=== PATIENT | female | born 1975 | race Caucasian/White ===

== ENCOUNTER 2018-09-16 15:49 | Outpatient (REF) | payer BC, SELFPAY ==
--- NOTE | 2018-09-16 15:10 | PAPFT_PTH ---
PATIENT: Stefani Yu LOC: [facility] U#:[id number] AGE/SX: 43/F ROOM: RE09/16/[address]: REECE Petit : 1975 BED: DIS: 09/16/2018 SPEC #: [id number] RECD: 09/16/18 18:00 STATUS: HANNAH REJob #: [id number] PAUL: 09/16/18 15:[address]: Karuna Shepherd DEPT: ON LICENSE OF [facility] Cytology RECD BY: Yvonne Horvath ENTERED: 09/16/18 18:00 SP TYPE: PAPFT OTHR DR: Caro Garcia Tissues: 1 - CX/ENDOCX FOR PAP SMEARS Procedures: PAP THIN PREP/[facility] Screening HPV DNA PROBE Comments: [id number]
== END 2018-09-16 16:09 ==
LOC: LBN 15:49
PROVIDERS: Visit Provider Nurse Practitioner Family
DX: Z12.4 Encounter for screening for malignant neoplasm of cervix (principal); Z11.51 Encounter for screening for human papillomavirus (HPV)
CPT/HCPCS: 88142; 87624

== ENCOUNTER 2018-10-04 00:45 | Outpatient (CLI) | payer BC, SELFPAY ==
--- NOTE | 2018-10-04 17:30 | DI.MAMMO_ITS ---
SYMPTOM/DIAGNOSIS: SCREENING, Z12.31 MAMMOGRAMS: Mammograms were interpreted according to the usual protocol including computer analysis with CAD system, tomosynthesis and C view imaging. Comparison is made with exams from 2015 and 2017. The breasts are composed of heterogeneously dense fibroglandular tissue, breast density, Category C. No suspicious masses or suspicious microcalcifications are seen. There has been no significant change. IMPRESSION: Category 1, negative mammogram. Yearly screening mammography is recommended. [facility] ASSESSMENT OF FINDINGS: Negative. Category 1. Patient will receive a letter notifying them of these results. Bi-RADS category C. The breasts are heterogeneously dense, which may obscure small masses.
== END 2018-10-04 01:05 ==
PROVIDERS: Visit Provider Nurse Practitioner Family
DX: Z12.31 Encounter for screening mammogram for malignant neoplasm of breast (principal)
CPT/HCPCS: 77063; 77067

== ENCOUNTER 2019-03-17 22:06 | Outpatient (REF) | payer BC, SELFPAY ==
[2019-03-21 14:49] LABS: Chlamydia Result Negative (Negative); GC Result Negative (Negative)
== END 2019-03-17 22:26 ==
LOC: LBN 22:06
PROVIDERS: Visit Provider Nurse Practitioner Family
DX: Z11.3 Encounter for screening for infections with a predominantly sexual mode of transmission (principal)
CPT/HCPCS: 87491; 87591

== ENCOUNTER 2020-12-06 02:18 | Outpatient (CLI) | payer BC, SELFPAY ==
--- NOTE | 2020-12-06 15:40 | DI.MAMMO_ITS ---
Exam(s) MAMMO SCREENING EXAM: MAMMO SCREENING CLINICAL HISTORY: screening TECHNIQUE: Mammograms were interpreted according to the usual protocol including computer analysis w Ensenda CAD system, tomosynthesis and C-view imaging. COMPARISON: FINDINGS: The breasts are heterogeneously dense. No dominant mass or clumped microcalcification is identified in either breast. The current examination is compared with previous examinations including October 19 and there has been no gross interval change in appearance in comparison with the prior studies. IMPRESSION: No specific evidence of malignancy at this time. Routine screening examinations are suggested at yea rly intervals in this age group according to the ACS ACR guidelines. BI-RADS Category 1 - Negative Breast Density - Category C - Heterogeneously dense
== END 2020-12-06 02:38 ==
PROVIDERS: PCP Nurse Practitioner Family; Visit Provider Nurse Practitioner Family
DX: Z12.31 Encounter for screening mammogram for malignant neoplasm of breast (principal); R92.8 Other abnormal and inconclusive findings on diagnostic imaging of breast
CPT/HCPCS: 77063; 77067

== ENCOUNTER 2021-12-04 09:48 | Outpatient (REF) | payer BC, SELFPAY ==
--- NOTE | 2021-12-04 08:30 | PAPFT_PTH ---
PATIENT: Stefani Yu LOC: [facility]#:[id number] AGE/SX: 46/F ROOM: RE12/04/[address]: Altagracia Jimenez NP : 1975 BED: DIS: 12/04/2021 SPEC #: [id number] RECD: 12/04/21 13:08 STATUS: HANNAH REQ #: [id number] PAUL: 12/04/21 08:[address]: Altagracia Jimenez NP DEPT: [facility] Cytology RECD BY: Yvonne Horvath ENTERED: 12/04/21 13:08 SP TYPE: PAPFT OTHR DR: Rhonda Bedolla Tissues: 1 - CX/ENDOCX FOR PAP SMEARS Procedures: PAP THIN PREP/UVM Screening HPV DNA PROBE Comments: [id number]
== END 2021-12-04 09:49 | disposition home or self-care (01) ==
LOC: LBN 09:48
PROVIDERS: PCP Nurse Practitioner Family; Visit Provider Nurse Practitioner Women's Health
DX: Z12.4 Encounter for screening for malignant neoplasm of cervix (principal); Z11.51 Encounter for screening for human papillomavirus (HPV)
CPT/HCPCS: 88142; 87624

== ENCOUNTER → 2022-01-08 02:11 | Outpatient (CLI) | payer BC, SELFPAY ==
--- NOTE | 2022-01-08 17:30 | DI.MAMMO_ITS ---
Exam(s) MAMMO SCREENING EXAM: MAMMO SCREENING CLINICAL HISTORY: screening TECHNIQUE: Bilateral full field digital CC and MLO mammographic images were obtained with 3D tomosyn thesis and utilizing computer aided detection (CAD). COMPARISON: Available for comparison. FINDINGS: Masses/Architectural Distortion: None seen. Microcalcifications: No suspicious pleomorphic-type are seen. Skin Thickening/Nipple Retraction: None. IMPRESSION: 1. No significant interval change with no specific features of malignancy noted. 2. Unless there is more urgent need, screening mammography is recommended, as per [place] guidelines. BI-RADS Category 1 - Negative Breast Density - Category C - Heterogeneously dense Breast density category C or D implies that the patient has dense breast tissue. Dense breast tissue is very common and is not abnormal but dense breast tissue can make it harder to find cancer on a ma mmogram. Also, dense breast tissue may increase their breast cancer risk. This information about the result of the mammogram report was provided to the patient to raise their awareness. Use this report when you speak with the patient about their risks for breast cancer, which includes their family hist ory. At that time, you may recommend for more screening tests (Ultrasound or MRI) as they might be us eful based on their risk. A negative radiographic report should not delay biopsy if a dominant or clinically suspicious mass is present. Up to ten percent of cancers are not identified on mammography. A negative report may reinforce clinical impression. Adenosis and dense breasts may obscure an underlying neoplasm. False positive reports average 6 to 10%. Patient will receive a letter notifying them of these results.
== END ==
PROVIDERS: PCP Nurse Practitioner Family; Visit Provider Nurse Practitioner Women's Health
DX: Z12.31 Encounter for screening mammogram for malignant neoplasm of breast (principal); R92.8 Other abnormal and inconclusive findings on diagnostic imaging of breast
CPT/HCPCS: 77063; 77067

== ENCOUNTER 2022-04-17 13:32 | Outpatient (REF) | payer BC, SELFPAY ==
[2022-04-17 14:14] LABS: HCT 45.5 % (36.0-46.0); HGB 14.7 g/dL (11.2-15.7); MCH 26.6 pg (27.0-33.0); MCHC 32.3 % (32.0-36.0); MCV 82 fL (80-95); Platelet Count 223 10^3/uL (130-400); RBC 5.53 10^6/uL (3.93-5.22); RDW 13.4 % (11.7-14.6); RDW-SD 39.8 fL; WBC 7.93 10^3/uL (4.4-10.8)
[2022-04-17 14:28] LABS: ALT 27 U/L (14-59); AST 15 U/L (15-37); Albumin 4.1 g/dL (3.4-5.0); Alkaline Phosphatase 71 U/L (46-116); Anion Gap 9.2 mmol/L (3-11); BUN 24 mg/dL (7-18); Bilirubin, Total 0.4 mg/dL (0.2-1.0); CO2 28.8 mmol/L (21.0-32.0); Calcium 9.4 mg/dL (8.5-10.1); Calculated LDL 138 mg/dL (<100); Chloride 105 mmol/L (98-107); Cholesterol 224 mg/dL (<200); Estimated GFR 69.49 (mL/min/1.73m2); Glucose 106 mg/dL (74-106); HDL Cholesterol 61 mg/dL (40-60); Potassium 5.1 mmol/L (3.5-5.1); Sodium 143 mmol/L (136-145); Total Protein 7.2 g/dL (6.4-8.2); Triglyceride 126 mg/dL (<150)
[2022-04-19 09:46] LABS: HIV-1/2 Ag & Ab Screen Negative (Negative)
[2022-04-21 09:41] LABS: Hepatitis C Ab w Rflx HCV PCR Negative (Negative)
== END 2022-04-17 13:33 | disposition home or self-care (01) ==
LOC: NCHCN 13:32
PROVIDERS: PCP Nurse Practitioner Family; Visit Provider Nurse Practitioner Family
DX: Z00.00 Encounter for general adult medical examination without abnormal findings (principal); Z13.0 Encounter for screening for diseases of the blood and blood-forming organs and certain disorders involving the immune mechanism; Z13.220 Encounter for screening for lipoid disorders; Z13.228 Encounter for screening for other metabolic disorders; Z11.4 Encounter for screening for human immunodeficiency virus [HIV]; Z11.59 Encounter for screening for other viral diseases
CPT/HCPCS: 80053; 80061; 85027; 86803; 87389

== ENCOUNTER 2022-06-27 10:07 | Day surgery (SDC) | payer BC, SELFPAY ==
--- NOTE | 2022-06-26 22:00 | PDOC.DSDIS_ITS ---
Date of service: 06/27/22 Time of Service: 11:44 Discharge Plan Disposition Patient Disposition: Home Condition: Good Discharge Details Reason For Visit: colon scope Attending Provider: Amy Juárez Primary Care Provider: Rhonda Bedolla Home Meds and New Rx's Prescriptions: Continued Mirena 20 mcg/24 hours (5 yrs) 52 mg intrauterine device 1 device IY ONCE multivitamin Tablet 1 tab PO DAILY fluticasone propionate 16 GM spray,suspension 50 mcg NS DAILY loratadine [Claritin] 10 MG tablet 10 mg PO PRN omeprazole 20 mg capsule,delayed release(DR/EC) 20 mg PO DAILY Discontinued polyethylene glycol 3350 17 gram/dose powder 238 g PO ONCE Qty: 238 0RF Rx Instructions: take per colonoscopy instructions bisacodyl [Dulcolax (bisacodyl)] 5 mg tablet,delayed release (DR/EC) 5 mg PO ONCE Qty: 4 0RF Rx Instructions: take per colonoscopy instructions Discharge Instructions Additional Instructions: DSU Colonoscopy Post- Op Instructions Instructions for Everyone who is given Anesthesia: For your safety, please do the following for the next twenty-four (24) hours: *Do Not operate a motor vehicle (car, truck, motorcycle, etc.) *Do Not drink alcoholic beverages or use any recreational drugs for the first 24 hours or while taking pain medications. The medications in your body may have a reaction that can be dangerous. *Do Not make any important decisions or sign any important papers. Findings: normal Follow up: repeat in 5 yrs time 1. No lifting over 20 pounds or strenuous activity for the first 24 hours after your procedure. After 24 hours there are no restrictions on your activity but you may feel fatigued for a few days. 2. After you arrive home you may have a light meal and return to your normal diet as you can tolerate it without feeling sick to your stomach. 3. You may have a bloated, gaseous feeling in your belly (abdomen) after a colonoscopy. Passing gas and belching will help. Walking or lying down on your left side with your knees flexed may relieve the discomfort. Call the office at [phone] (Office) or [phone] (Hospital) right away if you notice any of the following: a.Vomiting of blood or ?coffee ground stools?. b.Rectal bleeding 1Tbsp, blood clots or continuous bleeding. c.Severe belly (abdominal) pain. d.A hard distended belly (abdomen) and an inability to pass gas. 4. Please don?t expect to have a normal BM (bowel movement) for 2-3 days after your procedure. 5. If there are questions regarding the findings of your procedure, please contact your doctor 6. If you are unable to contact your doctor with a problem, contact the hospital at [phone]. 7. Continue all your regular medications unless directed otherwise. I understand the above instructions and have no questions. Signature of Patient or Adult Escort Name of Responsible Adult Escort Signature of Nurse Date/Time Activity:: see above Diet:: see above Discharge Orders Discharge Orders: Discharge Order (Routine); Ordered 06/27/22 Ordered By: Amy Juárez DS: Diagnosis Discharge Diagnosis (1) Family history of malignant neoplasm of colon in relative diagnosed when older than 50 years of age: Status: Acute Asessment and Plan: Post [place] Note/Eval The patient is seen and examined after their colonoscopy.? The patient has been able to pass gas.? They are not having abdominal pain.? They have been able to tolerate liquids and a snack.? They do not have any nausea or vomiting.? They are not having any chest pain or shortness of breath.??? They are not having any rectal bleeding..? Their vital signs have been stable-see nursing notes. We discussed findings during their colonoscopy, and any biopsies that were done/polyps that were removed. The patient will be sent a letter with any biopsy results, and when to repeat the colonoscopy.-see discharge instructions. Patient was given explicit instructions to follow-up regarding colonoscopy-refer to discharge instructions.? We reviewed resumption of medications. Patient verbalized understanding and discharged in stable and satisfactory condition- See nursing notes.
[2022-06-27 09:32] VITALS: BMI 26.4
--- NOTE | 2022-06-27 09:32 | ANES.PREOP_ITS ---
General Info Date of Service Date Performed: 06/27/22 Height: 5 ft 8.5 in Weight: 79.832 kg Body Mass Index (BMI): 26.4 Surgical Procedure: Operation Date: 06/27/22 10:50 Proposed Procedure Side Surgeon bird Juárez, DO Meds Allergies and Home Medications Allergies Allergy/AdvReac Type Severity Reaction Status Date / Time pollen extracts Allergy Intermediate sneezing, Verified 06/27/22 10:33 watery eyes Animal Dander Allergy Mild Watery, Uncoded 06/27/22 10:33 itchy eyes dust mites Allergy Mild Water, Uncoded 06/27/22 10:33 itchy eyes Home Medication Medication Instructions Recorded fluticasone propionate 50 50 mcg NS DAILY 08/16/12 mcg/actuation nasal spray,suspension loratadine 10 mg tablet (Claritin) 10 mg PO PRN 08/16/12 omeprazole 20 mg capsule,delayed 20 mg PO DAILY 09/16/18 release levonorgestrel 21 mcg/24 hours (8 1 device intrauterine ONCE 03/17/19 yrs) 52 mg intrauterine device (Mirena) multivitamin 1 tab PO DAILY 06/12/22 Current Visit Medications: Current Medications Generic Name Dose Route Start Last Admin Trade Name Freq PRN Reason Stop Dose Admin Hyoscyamine Sulfate 0.125 mg 06/27/22 10:49 Hyoscyamine 0.125 Mg Sl/Oral/Chew SL DIRECTED PRN Ringer's Solution 1,000 mls @ 80 mls/hr 06/27/22 06:00 IV 07/26/22 23:59 [facility] IV Miscellaneous Supplies 1 each 06/27/22 06:00 Iv Access IV 07/26/22 23:59 DIRECTED [facility] Ondansetron HCl 4 mg 06/27/22 10:49 Ondansetron 4 Mg/2 Ml Vial IVP Q4H PRN PRN Nausea / Vomiting Sodium Chloride 0 ml 06/27/22 06:00 Normal Saline Flush 10 Ml Syr IV 07/26/22 23:59 PRN PRN Sodium Chloride 0 ml 06/27/22 06:00 Normal Saline 10 Ml Vial IJ 07/26/22 23:59 DIRECTED PRN Sterile Water 0 ml 06/27/22 06:00 Water,Injection,Sterile 10 Ml Vial IJ 07/26/22 23:59 DIRECTED PRN PFSH Active Problems Active Problems: Problem Status Onset Code IUD surveillance 08/21/14 Z30.431 Asthma 02/03/14 J45.909 Irregular bowel habits R19.8 Medical History Medical History (Updated 06/25/22 @ 14:35 by Akbar Padgett) GERD (gastroesophageal reflux disease) Tobacco Smoking/Tobacco Use Status: Current-Occasional Tobacco Type: cigarettes Alcohol Alcohol Intake: current Alcohol intake frequency: a few times a month Substance Use Substance use: Rarely Substance use type: marijuana Vital Signs and Lab Results Vital Signs Most Recent Vital Signs in EMR: Temp Pulse Resp BP Pulse Ox 36.5 C 72 16 115/81 98 06/27/22 10:17 06/27/22 10:17 06/27/22 10:17 06/27/22 10:17 06/27/22 10:17 Lab Results Blood Type / Crossmatch: No Data to Display Complete Blood Count: No Data to Display Complete Metabolic Panel: No Data to Display Liver Function Panel: No Data to Display Coagulation Panel: No Data to Display Cardiac Panel: No Data to Display Arterial Blood Gas: No Data to Display Venous Blood Gas: No Data to Display Pancreas Panel: No Data to Display Thyroid Panel: No Data to Display Infectious Disease: No Data to Display Blood Cultures: No Data to Display Toxicology Panel: No Data to Display Panel: No Data to Display Anesthesia Assessment and Plan Anesthesia History Personal History: No History of Anesthesia Complications Family History: No Family History of Anesthesia Complications Exercise Tolerance Exercise Tolerance: Metabolic Equivalents>4 Pertinent Negatives Pertinent Negatives: No Symptoms of GERD and No Major Cardiovascular Symptoms or Complaints Cardiac & Pulmonary Exam Cardiac Exam: Normal S1/S2 Heart Sounds Pulmonary Exam: Clear Bilateral Breath Sounds Implantable Cardiac Device Does patient have a Pacemaker or an ICD?: No Airway Exam Known Difficult Airway: No Mallampati Class: 1 Mouth Opening: Normal (> 3cm) Thyromental Distance: Less than 3 cm Neck Range of Motion: Full ROM Neck Circumference: Normal Teeth Condition: Normal Dentition ASA Classification ASA Score: ASA 2 Emergency Case?: No NPO Status NPO Status: NPO Clears >2 hours, Solids >8 hours Status Status: Negative HCG Anesthesia Plan Resuscitation Status: Full Code Anesthesia Technique: General Anesthesia Airway Planned: Natural Airway Monitors Used: Standard Monitors
[2022-06-27 10:17] VITALS: BP 115/81; PULSE 72; RESP 16; TEMP 36.5; O2SAT 98
[2022-06-27] MEDS: Lactated Ringers 1,000 ML 80 ML IV (10:23)
--- NOTE | 2022-06-27 11:14 | W.PM.OP ---
Date of service: 06/27/22 Time of Service: 11:14 Operative Note Operative Note DATE OF PROCEDURE: 06/27/22 PRE-OP DIAGNOSIS: Family history of colorectal cancer-secondary family member POST-OP DIAGNOSIS: same SURGEON: Amy Juárez ANESTHESIA TYPE: General:No Airway Refer to Anesthesia Record ESTIMATED BLOOD LOSS: 0 PATHOLOGY: none sent COMPLICATIONS: None Patient was transported to: same day Patient's condition: stable Procedure Description: After informed consent was obtained the patient was taken to the procedure room and placed in a left decubitous position. Monitors were applied and a time out was done. The patients name, date of , procedure, allergies to medications and metal in their body was reviewed. The patient was then sedated. Once sedated and comfortable a rectal exam was done. External exam was normal. Internal exam revealed a normal sphincter tone and no palpable masses. The scope was then introduced and retrofelexed. The prep was BBPS 3 in all segments for total of 9. No internal hemorrhoids were identified. The scope was then advanced to the cecum without difficulty. The TI and appendiceal orifice were identified. The scope was then slowly retracted over 13 minutes back into the rectum. there are no polyps, AVMs, or diverticula visualized today. Mucosa is pink and healthy with a normal vascular pattern.. The scope was removed and the patient was woken up and taken back to Same day surgery in stable condition. The patient tolerated the procedure well and there were no immediate complications. Follow up: The patient should follow up in 5 years unless they develop changes in bowel habits or other new gastrointestinal complaints.
[2022-06-27 11:57] VITALS: BP 94/74; PULSE 79; RESP 16; TEMP 36; O2SAT 95
--- NOTE | 2022-06-27 12:11 | W.ANESPOSTOP ---
Postoperative Evaluation Date, Time and Location Date Performed: 06/27/22 Time Performed: 11:57 Patient Location: Day Surgery Unit Vital Signs Most Recent Imported Vital Signs: Most Recent Vital Signs Temp Pulse Resp BP Pulse Ox 36.0 C L 79 16 94/74 L 95 06/27/22 11:57 06/27/22 11:57 06/27/22 11:57 06/27/22 11:57 06/27/22 11:57 Pain Score Most Recent Pain Score: Most Recent Pain Score Pain Level 0 06/27/22 10:17 Assessment Mental Status: Awake (Alert & Oriented to Patient Baseline) Airway and Respiratory Function: Patent airway with normal (patient baseline) respiratory exam Cardiovascular Function: Hemodynamically Stable Hydration Status: Adequately Hydrated Nausea & Vomiting: No Nausea or Vomiting Pain: Pt. Denies Any Pain Peripheral Nerve Block: Patient did not receive a nerve block
[2022-06-27 12:18] VITALS: BP 101/69; PULSE 60; RESP 16; TEMP 36.5; O2SAT 100
== END 2022-06-27 12:30 | disposition home or self-care (01) ==
PROVIDERS: PCP Nurse Practitioner Family; Visit Provider Surgery
PROC: 0DJD8ZZ Inspection of Lower Intestinal Tract, Via Natural or Artificial Opening Endoscopic (ICD-10-PCS; CPT 45378; principal; 2022-06-27 10:45)
DX: Z12.11 Encounter for screening for malignant neoplasm of colon (principal); Z80.0 Family history of malignant neoplasm of digestive organs
CPT/HCPCS: 45378

== ENCOUNTER 2023-05-01 16:17 | Outpatient (REF) | payer BC, SELFPAY ==
[2023-05-01 14:33] LABS: HCT 42.9 % (36.0-46.0); HGB 14.1 g/dL (11.2-15.7); MCH 26.7 pg (27.0-33.0); MCHC 32.9 % (32.0-36.0); MCV 81 fL (80-95); MPV 11.9 fL (8.0-11.0); Platelet Count 225 10^3/uL (130-400); RBC 5.29 10^6/uL (3.93-5.22); RDW-SD 40.8 fL; WBC 8.09 10^3/uL (4.4-10.8)
[2023-05-01 15:07] LABS: ALT 20 U/L (14-59); AST 12 U/L (15-37); Albumin 3.7 g/dL (3.4-5.0); Alkaline Phosphatase 82 U/L (46-116); BUN 18 mg/dL (7-18); Bilirubin, Total 0.3 mg/dL (0.2-1.0); Calculated LDL 141 mg/dL (<100); Chloride 107 mmol/L (98-107); Cholesterol 216 mg/dL (<200); Estimated GFR 69.06 (mL/min/1.73m2); Glucose 97 mg/dL (74-106); HDL Cholesterol 59 mg/dL (40-60); Potassium 4.7 mmol/L (3.5-5.1); Sodium 144 mmol/L (136-145); Triglyceride 80 mg/dL (<150)
== END 2023-05-01 16:18 | disposition home or self-care (01) ==
LOC: NCHCN 16:17
PROVIDERS: PCP Nurse Practitioner Family; Visit Provider Nurse Practitioner Family
DX: Z00.00 Encounter for general adult medical examination without abnormal findings (principal); Z13.220 Encounter for screening for lipoid disorders; Z13.0 Encounter for screening for diseases of the blood and blood-forming organs and certain disorders involving the immune mechanism; Z13.228 Encounter for screening for other metabolic disorders
CPT/HCPCS: 80053; 80061; 85027

== ENCOUNTER → 2023-09-24 01:00 | Outpatient (CLI) | payer BC, SELFPAY ==
--- OUTSIDE RECORDS SUMMARY | 2023-09-24 01:02 | XMS_ITS | Encounter Summary ---
Author Organization [facility] Address [address] [place] [address] Care Team Providers Care Dining Room Host Name Role Phone Unavailable Primary Care Provider Unavailabl e Encounter Details Date Type Department Care Team (Late st Contact Info) Description 08/03/2007 Results Only [facility] conversion [address] [place] [address] Jordan Hawthorne MD [address] [facility] [address] [place] [address] Social History Tobacco Use Types Packs/Day Years Used Date Smoking Tobacco: Never Assessed Sex and Gender Information Value Date Recorded Sex Assigned at Not on file Gender Identity Not on file Sexual Orientation Not on file documented as of this encounter Plan of Treatment Not on file documented as of this encounter Procedures Procedure Name Priority Date/Time Associated Diagnosis Comments CYTOPATHOLOGY Routine 08/03/2007 0:00 EDT documented in this encounter Results * CYTOPATHOLOGY (08/03/2007 0:00 EDT) Pathology Report: CYTOPATHOLOGY REPORT Reports generated via electronic interface contain original data; however they are lacking the format of the original report. Caution should be taken when reading/interpreti ng unformatted reports. Name: ? STEFANI MIRANDA ? Accession #: ? [id number] : ? 1975 (Age: 32) ??F ?Collect Date: ? 08/03/2007 Location: ? [facility] ? Receive Date: ? 08/04/2007 Provider: ?JORDAN HAWTHORNE MD Copy to: ? Specimen/Source: ?ThinPrep Pap Test, Cervix/Endocervix, processed on [employer] ThinPrep Imaging System, with manual evaluation Last Menstrual Period: ? 07/28/07 Hormonal/Contracep tive Status: ? Control Pills Other: ? Additional clinical information: nl exam ? SPECIMEN ADEQUACY ? Satisfactory for Evaluation - transformation zone component present GENERAL CATEGORIZATION ? Negative for Intraepithelial Lesion or Malignancy ? Document reviewed and electronically signed by: ? Jess Campos, SCT(ASCP) ? Report Date: ??08/05/2007 14:46 End of Report JENI MENDEZ 08/03/2007 08/04/2007 Jordan Hawthorne MD PATHOLOGY ORDERABLES Performing Organization Address City/State/[facility] Co de Phone Number JENI MENDEZ [address] [place] [address] documented in this encounter Visit Diagnoses Not on filedocumented in this encounter
--- OUTSIDE RECORDS SUMMARY | 2023-09-24 01:02 | XMS_ITS | Encounter Summary ---
Author Organization [facility] Address [address] [place] [address] Care Team Providers Care Rehab/Pre Vocational Counselor Name Role Phone Caro Garcia MD Primary Care Provider [phone] Encounter Details Date Type Department Care Team (Late st Contact Info) Description 03/18/2019 Lab Requisition [facility] Pathology & Laboratory Medicine - [address] [address] Unknown, Provider, Social History Tobacco Use Types Packs/Day Years Used Date Smoking Tobacco: Never Assessed Sex and Gender Information Value Date Recorded Sex Assigned at Not on file Gender Identity Not on file Sexual Orientation Not on file documented as of this encounter Plan of Treatment Not on file documented as of this encounter Procedures Procedure Name Priority Date/Time Associated Diagnosis Comments CHLAMYDIA/N. GONORRHOEAE AMPLIFIED NUCLEIC ACID Routine 03/17/2019 16:00 EST documented in this encounter Results * CHLAMYDIA/N. GONORRHOEAE AMPLIFIED RNA (03/17/2019 16:00 EST) Neisseria gonorrhoeae Result Negative Negative 03/21/2019 14:45 EST [facility] Chlamydia trachomatis Result Negative Negative 03/21/2019 14:45 EST [facility] Swab ENTIRE ENDOCERVIX / Unknown 03/17/2019 16:00 EST 03/18/2019 22:51 EST Provider Unknown MICROBIOLOGY - GENER AL ORDERABLES [facility] [address] [place] [address] documented in this encounter Visit Diagnoses Not on filedocumented in this encounter Care Teams Rehab/Pre Vocational Counselor Relationship Specialty Start Date End Date Caro Garcia MD [address] [place] [address] PCP - General 02/04/11 documented as of this encounter
--- OUTSIDE RECORDS SUMMARY | 2023-09-24 01:02 | XMS_ITS | Encounter Summary ---
Author Organization [facility] Address [address] [place] [address] Care Team Providers Care Operations Program Manager Name Role Phone Caro Garcia MD Primary Care Provider [phone] Encounter Details Date Type Department Care Team (Late st Contact Info) Description 08/27/2015 Results Only [facility] [phone] Karuna Shepherd, [facility] [address] [place] [address] Social History Tobacco Use Types Packs/Day Years Used Date Smoking Tobacco: Never Assessed Sex and Gender Information Value Date Recorded Sex Assigned at Not on file Gender Identity Not on file Sexual Orientation Not on file documented as of this encounter Plan of Treatment Not on file documented as of this encounter Procedures Procedure Name Priority Date/Time Associated Diagnosis Comments PAP TEST- RESULT ONLY Routine 08/27/2015 0:00 EDT documented in this encounter Results * PAP TEST- RESULT ONLY (08/27/2015 0:00 EDT) Pathology Report: CYTOPATHOLOGY REPORT Reports generated via electronic interface contain original data; however they are lacking the format of the original report. Caution should be taken when reading/interpreti ng unformatted reports. Name: ? STEFANI MIRANDA ? Accession #: ? [id number] ? : ? 1975 (Age: 40) ??F ?Collect Date: ? 08/27/2015 ? Location: ? [facility] ? Receive Date: ? 08/28/2015 ? Provider: KARUNA SHEPHERD PT SITTER Copy to: CARO GARCIA MD ? Final Report SPECIMEN ADEQUACY ? Satisfactory for Evaluation - transformation zone component present GENERAL CATEGORIZATION ? Negative for Intraepithelial Lesion or Malignancy ?? Hormonal/Contracep tive status: Intrauterine device: mirena Specimen/Source: ??Pap Test, Cervix/Endocervix, ThinPrep Imaging System with manual evaluation Document reviewed and electronically signed by: ? HALEY Wilson(ASCP) ? Report ??Date: 09/07/2015 11:37 HPV with Pap Test ? Date Ordered: ? 09/07/2015 ? Status: ?? Signed Out ?Date Complete: ? 09/11/2015 ? By: ??System Interface ? Date Reported: ? 09/11/2015 ? Interpretation RESULT: Negative for HPV. No E6 or E7 mRNA is detected from HPV types 16,18,31,33,35, 39,45,51,52,56,58, 59,66, and 68 by occupational health and safety manager mediated amplification. Comments Document reviewed and electronically signed by: ? System Interface ? Report date: 09/11/2015 By the signature above, the attending physician certifies that he/she has personally conducted a gross and/or microscopic examination of the described specimens and rendered or confirmed the above diagnosis. End of Report [facility] 08/27/2015 08/28/2015 Karuna Shepherd PT SITTER PATHOLOGY ORDERABLES [facility] [address] [place] [address] documented in this encounter Visit Diagnoses Not on filedocumented in this encounter Care Teams Operations Program Manager Relationship Specialty Start Date End Date Caro Garcia MD [address] [place] [phone] PCP - General 02/04/11 documented as of this encounter
--- OUTSIDE RECORDS SUMMARY | 2023-09-24 01:02 | XMS_ITS | Encounter Summary ---
Author Organization [facility] Address [address] [place] [address] Care Team Providers Care Grain Oilseed Or Pasture Farm Worker Name Role Phone Unavailable Primary Care Provider Unavailabl e Encounter Details Date Type Department Care Team (Late st Contact Info) Description 08/10/2009 Results Only [facility] Laboratory Services - [facility] ([facility] [address] [place] [address] Karuna Shepherd, [facility] [address] [place] [address] [place] [address] Social History Tobacco Use Types [...] Priority Date/Time Associated Diagnosis Comments CYTOPATHOLOGY Routine 08/10/2009 0:00 EDT documented in this encounter Results * CYTOPATHOLOGY (08/10/2009 0:00 EDT) Pathology Report: CYTOPATHOLOGY REPORT ? Reports generated via electronic interface contain original data; ? however they are lacking the format of the original report. ? Caution should be taken when reading/interpreti ng unformatted reports. ? Name: ? STEFANI MIRANDA ? Accession #: ? [id number] ? : ? 1975 (Age: 34) ??F ?Collect Date: ? 08/10/2009 ? Location: ? [facility] ? Receive Date: ? 08/13/2009 ? Provider: ?KARUNA SUSHILA PRN OCCUPATIONAL THERAPIST ? Copy to: ? Specimen/Source: ?Pap Test, Cervix/Endocervix, ThinPrep Imaging System ? with manual evaluation ? Last Menstrual Period: ? 05/26/10 ? Previous Gynecologic Pathology: ? SISSY I: 1999 ? Treatment History: ? Cryotherapy: SISSY I 1999 ? Other: ? HPVA - HPV testing requested if ASC-US on the current ThinPrep Pap test. ? SPECIMEN ADEQUACY ? Satisfactory for Evaluation ? - transformation zone component present ? GENERAL CATEGORIZATION ? Negative for Intraepithelial Lesion or Malignancy ? Document reviewed and electronically signed by: ? Mirela Mcdonaldlogg, CT(ASCP) ? Report Date: ??08/16/2009 10:33 ? End of Report ? [facility] 08/10/2009 08/13/2009 Karuna Shepherd PRN OCCUPATIONAL THERAPIST PATHOLOGY ORDERABLES [facility] [address] [place] [address] documented in this encounter Visit Diagnoses Not on filedocumented in this encounter
--- OUTSIDE RECORDS SUMMARY | 2023-09-24 01:02 | XMS_ITS | Encounter Summary ---
Author Organization [facility] Address [address] [place] [address] Care Team Providers Care Chemical Compounder Name Role Phone Unavailable Primary Care Provider Unavailabl e Encounter Details Date Type Department Care Team (Late st Contact Info) Description 06/19/2003 Results Only [facility] [place] conversion [address] [place] [address] Jordan Hawthorne MD [address] [facility] [address] [place] [address] Social History Tobacco Use Types [...] Priority Date/Time Associated Diagnosis Comments CYTOPATHOLOGY Routine 06/19/2003 0:00 EDT documented in this encounter Results * CYTOPATHOLOGY (06/19/2003 0:00 EDT) Pathology Report: CYTOPATHOLOGY REPORT Reports generated via electronic interface contain original data; however they are lacking the format of the original report. Caution should be taken when reading/interpreti ng unformatted reports. Name: ? STEFANI MIRANDA ? Accession #: ? [id number] : ? 1975 (Age: 28) ??F ?Collect Date: ? 06/19/2003 Location: ? [facility] ? Receive Date: ? 06/21/2003 Provider: ?JORDAN HAWTHORNE MD Copy to: ? Specimen/Source: ?ThinPrep Pap Test, Cervix/Endocervix Last Menstrual Period: ? 06/01/03 Hormonal/Contracep tive Status: ? Control Pills Previous Gynecologic Pathology: ? Yes: ? SPECIMEN ADEQUACY ? Satisfactory for Evaluation - transformation zone component present GENERAL CATEGORIZATION ? Negative for Intraepithelial Lesion or Malignancy ? Document reviewed and electronically signed by: ? HALEY Bagley(ASCP) ? Report Date: ??06/22/2003 11:23 End of Report [facility] 06/19/2003 06/21/2003 Jordan Hawthorne MD PATHOLOGY ORDERABLES [facility] [address] [place] [address] documented in this encounter Visit Diagnoses Not on filedocumented in this encounter
--- OUTSIDE RECORDS SUMMARY | 2023-09-24 01:02 | XMS_ITS | Encounter Summary ---
Author Organization [facility] Address [address] [place] [address] Care Team Providers Care Car Sales Consultant Name Role Phone Caro Garcia MD Primary Care Provider [phone] Encounter Details Date Type Department Care Team (Late st Contact Info) Description 08/16/2012 Results Only [facility] Laboratory Services - [facility] ([place]) [address] [place], [place] [address] Karuna Shepherd, [facility] [address] [address] Social History Tobacco Use Types [...] Diagnosis Comments PAP TEST- RESULT ONLY Routine 08/16/2012 0:00 EDT documented in this encounter Results * PAP TEST- RESULT ONLY (08/16/2012 0:00 EDT) Pathology Report: CYTOPATHOLOGY REPORT Reports generated via electronic interface contain original data; however they are lacking the format of the original report. Caution should be taken when reading/interpreti ng unformatted reports. Name: ? STEFANI MIRANDA ? Accession #: ? [id number] ? : ? 1975 (Age: 37) ??F ?Collect Date: ? 08/16/2012 ? Location: ? [facility] ? Receive Date: ? 08/17/2012 ? Provider: KARUNA SHEPHERD FACILITY MANAGER Copy to: CARO GARCIA MD ? Final Report SPECIMEN ADEQUACY ? Satisfactory for Evaluation - transformation zone component present GENERAL CATEGORIZATION ? Negative for Intraepithelial Lesion or Malignancy ?? Last Menstrual Period: 06/16/2012 Hormonal/Contracep tive status: Oral contraceptives: Extended cycles Specimen/Source: ??Pap Test, Cervix/Endocervix, ThinPrep Imaging System with manual evaluation Document reviewed and electronically signed by: ? Gallo Neumann, CT(ASCP) ? Report ??Date: 08/21/2012 11:43 HPV with Pap Test ? Date Ordered: ? 08/21/2012 ? Status: ?? Signed Out ?Date Complete: ? 08/24/2012 ? By: ??System Interface ? Date Reported: ? 08/24/2012 ? Interpretation RESULT: Negative for HPV. No E6 or E7 mRNA is detected from HPV types 16,18,31,33,35, 39,45,51,52,56,58, 59,66, and 68 by forensic accountant mediated amplification. Comments Document reviewed and electronically signed by: ? System Interface ? Report date: 08/24/2012 By the signature above, the attending physician certifies that he/she has personally conducted a gross and/or microscopic examination of the described specimens and rendered or confirmed the above diagnosis. End of Report [facility] 08/16/2012 08/17/2012 Karuna Shepherd FACILITY MANAGER PATHOLOGY ORDERABLES [facility] [address] [place] [address] documented in this encounter Visit Diagnoses Not on filedocumented in this encounter Care Teams Car Sales Consultant Relationship Specialty Start Date End Date Caro Garcia MD [address] [place] [address] PCP - General 02/04/11 documented as of this encounter
--- OUTSIDE RECORDS SUMMARY | 2023-09-24 01:02 | XMS_ITS | Encounter Summary ---
Author Organization [facility] Address [address] [place] [address] Care Team Providers Care Lye Machine Operator Name Role Phone Unavailable Primary Care Provider Unavailabl e Encounter Details Date Type Department Care Team (Late st Contact Info) Description 06/14/2001 Results Only [facility] [place] conversion [address] [place] [address] Jordan Hawthorne MD [address] [facility] [address] [place] [address] Social History Tobacco Use Types [...] Priority Date/Time Associated Diagnosis Comments CYTOPATHOLOGY Routine 06/14/2001 0:00 EDT documented in this encounter Results * CYTOPATHOLOGY (06/14/2001 0:00 EDT) Pathology Report: CYTOPATHOLOGY REPORT Reports generated via electronic interface contain original data; however they are lacking the format of the original report. Caution should be taken when reading/interpreti ng unformatted reports. Name: ? STEFANI MIRANDA ? Accession #: ? [id number] : ? 1975 (Age: 26) ??F ?Collect Date: ? 06/14/2001 Location: ? [facility] ? Receive Date: ? 06/15/2001 Provider: ?JORDAN HAWTHORNE MD Copy to: ? Specimen/Source: ?ThinPrep Pap Test, Cervix/Endocervix Last Menstrual Period: ? 05/24/01 Previous Gynecologic Pathology: ? ASC-US: In the past Treatment History: ? Cryotherapy: ? SPECIMEN ADEQUACY ? Satisfactory for Evaluation - transformation zone component present GENERAL CATEGORIZATION ? Negative for Intraepithelial Lesion or Malignancy ? Document reviewed and electronically signed by: ? JERARDO Leavitt(ASCP) ? Report Date: ??06/18/2001 08:04 End of Report [facility] 06/14/2001 06/15/2001 Jordan Hawthorne MD PATHOLOGY ORDERABLES [facility] [address] [place] [address] documented in this encounter Visit Diagnoses Not on filedocumented in this encounter
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
--- OUTSIDE RECORDS SUMMARY | 2023-09-24 01:02 | XMS_ITS | Encounter Summary ---
Author Organization [facility] Address [address] [place] [address] Care Team Providers Care Enroller Name Role Phone Unavailable Primary Care Provider Unavailabl e Encounter Details Date Type Department Care Team (Late st Contact Info) Description 01/31/2011 Results Only [facility] [phone] Ho Sloan, DO [address] [place] [address] Social History Tobacco Use Types Packs/Day Years Used Date Smoking Tobacco: Never Assessed Sex and Gender Information Value Date Recorded Sex Assigned at Not on file Gender Identity Not on file Sexual Orientation Not on file documented as of this encounter Plan of Treatment Not on file documented as of this encounter Procedures Procedure Name Priority Date/Time Associated Diagnosis Comments SURGICAL PATHOLOGY Routine 01/31/2011 0:00 EST documented in this encounter Results * SURGICAL PATHOLOGY (01/31/2011 0:00 EST) Pathology Report: SURGICAL PATHOLOGY REPORT Reports generated via electronic interface contain original data; however they are lacking the format of the original report. Caution should be taken when reading/interpreti ng unformatted reports. Name: ? STEFANI MIRANDA ? Accession #: ? [id number] ? : ? 1975 (Age: 36) ??F ? Collect Date: ? 01/31/2011 ? Location: ? [facility] ? Receive Date: ? 01/31/2011 ? Provider: HO SLOAN DO Copy to: STEPHANIE ANDERS MD ? Final Pathologic Diagnosis: A. ?Duodenum, biopsies: 1. ?Duodenal mucosa with no specific pathologic features. ?? B. ?Stomach, antrum, biopsies: 1. ?Chronic active gastritis. ?? 2. ? Helicobacter pylori-like organisms identified on H& E stained slides. C. ?gastroesophageal junction, biopsies: 1. ?Squamocolumnar junctional mucosa with chronic and acute inflammation and reactive epithelial changes. 2. ? Negative for intestinal metaplasia. 3. ? Helicobacter pylori-like organisms identified on H&E stained slides. Document reviewed and electronically signed by: MEAGHAN STEINBERG MD Report ??Date: 02/03/2011 15:54 By the signature above, the attending physician certifies that he/she has personally conducted a gross and/or microscopic examination of the described specimens and rendered or confirmed the above diagnosis. Specimen(s) Received: A. ?Duodenum (#1) B. ? Gastric antrum (#2) C. ? GE junction (#3) Clinical History: ? Abd pain, bloating + heme+stool Gross Description: ? Received in formalin labelled MarxWooa and duodenum are two irregular, santillan-brown .................. . tissue fragments which measure 0.3 x 0.2 x 0.1 cm each. ??The specimen is entirely submitted in one cassette as (A). Received in formalin labelled Marcoux, Stefani and gastric antrum are two irregular, santillan-brown soft tissue fragments which measure 0.2 x 0.1 x 0.1 cm and 0.3 x 0.2 x 0.1 cm. ??The specimen is entirely submitted in one cassette as (B). Received in formalin labelled Marcoux, Stefani and GE junction are three santillan-brown irregular soft tissue fragments which range in size from 0.5 x 0.3 x 0.2 cm up to 0.8 x 0.3 x 0.2 cm. ??The specimen is entirely submitted in one cassette as (C). ??(Dr. Haynes)/[facility] End of Report JENI MEN[facility] 01/31/2011 01/31/2011 16: 49 EST Ho Sloan DO PATHOLOGY ORDERABLES [facility] [address] [place] [address] documented in this encounter Visit Diagnoses Not on filedocumented in this encounter
--- OUTSIDE RECORDS SUMMARY | 2023-09-24 01:02 | XMS_ITS | Encounter Summary ---
[place] [address] Care Team Providers Care Ciso Name Role Phone Rhonda Bedolla APRN Primary Care Provider [phone] Encounter Details Date Type Department Care Team (Latest Contact Info) Description 03/05/2023 Travel Social History Tobacco Use Types Packs/Day Years Used Date Smoking Tobacco: Former Smokeless Tobacco: Never Sex and Gender Information Value Date Recorded Sex Assigned at Not on file Gender Identity Not on file Sexual Orientation Not on file documented as of this encounter Plan of Treatment Upcoming Encounters Date Type Department Care Team (Late st Contact Info) Description 03/12/2026 8:00 AM EST Office Visit Dermatology at [place] [address] [facility] [place] [phone] Paulo Arizmendi MD [address] [facility] [address] documented as of this encounter Visit Diagnoses Not on filedocumented in this encounter Care Teams Ciso Relationship Specialty Start Date End Date Rhonda Bedolla APRN [address] [place] [address] PCP - General Family Medicine 01/30/20 documented as of this encounter
--- OUTSIDE RECORDS SUMMARY | 2023-09-24 01:02 | XMS_ITS | Encounter Summary ---
Author Organization [facility] Address [address] [place] [address] Care Team Providers Care Tailor Fitter Name Role Phone Unavailable Primary Care Provider Unavailabl e Encounter Details Date Type Department Care Team (Late st Contact Info) Description 11/19/1999 10:22 EDT Hospital Encounter [facility] - Other [address] [place] [address] Jordan Kauffman MD [address] [facility] [address] [place] [address] [place] [address] Unknown, Provider, Social History Tobacco Use Types Packs/Day Years Used Date Smoking Tobacco: Never Assessed Sex and Gender Information Value Date Recorded Sex Assigned at Not on file Gender Identity Not on file Sexual Orientation Not on file documented as of this encounter Plan of Treatment Not on file documented as of this encounter Visit Diagnoses Not on filedocumented in this encounter
--- OUTSIDE RECORDS SUMMARY | 2023-09-24 01:02 | XMS_ITS | Encounter Summary ---
Author Organization [facility] Address [address] [place] [address] Care Team Providers Care Rectification Printer Name Role Phone Caro Garcia MD Primary Care Provider [phone] Encounter Details Date Type Department Care Team (Late st Contact Info) Description 08/15/2011 Results Only [facility] Laboratory Services - [facility] [address] [place], [place] [phone] Karuna Shepherd, [facility] [address] [place] [place] [address] Social History Tobacco Use Types [...] Diagnosis Comments PAP TEST- RESULT ONLY Routine 08/15/2011 0:00 EDT documented in this encounter Results * PAP TEST- RESULT ONLY (08/15/2011 0:00 EDT) Pathology Report: CYTOPATHOLOGY REPORT Reports generated via electronic interface contain original data; however they are lacking the format of the original report. Caution should be taken when reading/interpreti ng unformatted reports. Name: ? STEFANI MIRANDA ? Accession #: ? [id number] : ? 1975 (Age: 36) ??F ?Collect Date: ? 08/15/2011 Location: ? [facility] ? Receive Date: ? 08/18/2011 Provider: ?KARUNA SHEPHERD ORTHOTICS PROSTHETICS ASSISTANT Copy to: ?CARO GARCIA MD ? Specimen/Source: ?Pap Test, Cervix/Endocervix, ThinPrep Imaging System with manual evaluation Last Menstrual Period: ? March Hormonal/Contracep tive Status: ? Oral contraceptives Treatment History: ? Cryotherapy: 1998 ? SPECIMEN ADEQUACY ? Satisfactory for Evaluation - transformation zone component present GENERAL CATEGORIZATION ? Negative for Intraepithelial Lesion or Malignancy ? Document reviewed and electronically signed by: ? HALEY Bautista(ASCP) ? Report Date: ??08/19/2011 11:38 End of Report JENI MENDEZ 08/15/2011 08/18/2011 Karuna Shepherd ORTHOTICS PROSTHETICS ASSISTANT PATHOLOGY ORDERABLES J[facility]I M[facility] [address] [place] [address] documented in this encounter Visit Diagnoses Not on filedocumented in this encounter Care Teams Rectification Printer Relationship Specialty Start Date End Date Caro Garcia MD [address] [place] [address] PCP - General 02/04/11 documented as of this encounter
--- OUTSIDE RECORDS SUMMARY | 2023-09-24 01:02 | XMS_ITS | Encounter Summary ---
Author Organization [facility] Address [address] [place] [address] Care Team Providers Care Physician Underwriter Name Role Phone Unavailable Primary Care Provider Unavailabl e Encounter Details Date Type Department Care Team (Late st Contact Info) Description 06/17/2002 Results Only [facility] conversion [address] [place] [address] Jordan Hawthorne MD [address] [facility] [address] [place] [address] Social History Tobacco Use Types [...] Priority Date/Time Associated Diagnosis Comments CYTOPATHOLOGY Routine 06/17/2002 0:00 EDT documented in this encounter Results * CYTOPATHOLOGY (06/17/2002 0:00 EDT) Pathology Report: CYTOPATHOLOGY REPORT Reports generated via electronic interface contain original data; however they are lacking the format of the original report. Caution should be taken when reading/interpreti ng unformatted reports. Name: ? STEFANI MIRANDA ? Accession #: ? [id number] : ? 1975 (Age: 27) ??F ?Collect Date: ? 06/17/2002 Location: ? [facility] ? Receive Date: ? 06/20/2002 Provider: ?JORDAN HAWTHORNE MD Copy to: ? Specimen/Source: ?ThinPrep Pap Test, Cervix/Endocervix Last Menstrual Period: ? 06/08/02 Hormonal/Contracep tive Status: ? Control Pills Previous Gynecologic Pathology: ? SISSY I: 1998 Treatment History: ? Cryotherapy: normal pap since ? SPECIMEN ADEQUACY ? Satisfactory for Evaluation - transformation zone component present GENERAL CATEGORIZATION ? Negative for Intraepithelial Lesion or Malignancy ? Document reviewed and electronically signed by: ? HALEY Bravo(ASCP) ? Report Date: ??06/22/2002 14:31 End of Report JENI MENDEZ 06/17/2002 06/20/2002 Jordan Hawthorne MD PATHOLOGY ORDERABLES [facility] [address] [place] [address] documented in this encounter Visit Diagnoses Not on filedocumented in this encounter
--- OUTSIDE RECORDS SUMMARY | 2023-09-24 01:02 | XMS_ITS | Encounter Summary ---
Author Organization [facility] Address [address] [place] [address] Care Team Providers Care Furniture Stainer Name Role Phone Unavailable Primary Care Provider Unavailabl e Encounter Details Date Type Department Care Team (Late st Contact Info) Description 05/20/1999 Results Only [facility] conversion [address] [place] [address] Jordan Hawthorne MD 29 [facility] [address] [place] [address] Social History Tobacco Use Types [...] Priority Date/Time Associated Diagnosis Comments CYTOPATHOLOGY Routine 05/20/1999 9:55 EST documented in this encounter Results * CYTOPATHOLOGY (05/20/1999 9:55 EST) Pathology Report: CYTOPATHOLOGY REPORT Reports generated via electronic interface contain original data; however they are lacking the format of the original report. Caution should be taken when reading/interpreti ng unformatted reports. Name: ? STEFANI MIRANDA ? Accession #: ? [id number] : ? 1975 (Age: 24) ??F ?Collect Date: ? 05/20/1999 Location: ?Receive Date: ? 05/20/1999 Provider: ?JORDAN HAWTHORNE MD Copy to: ?JORDAN HAWTHORNE MD ? Specimen/Source: ?Saddle Mechanic ThinPrep Last Menstrual Period: ? GYNECOLOGIC ??CYTOPATHOLOGY ??REPORT Name: STEFANI MIRANDA ? FA[facility] : 1975 ?? 24Y F ?Client ID: [id number] SS#: [id number] ? Clinician: JORDAN HAWTHORNE MD ?? Location: [facility] ??Copy to: ?? Specimen: ?Saddle Mechanic ThinPrep ? Source: Cervix/Endocervix ?Collected: 05/16/99 ? Received: 05/20/1999 ?LMP: 04/27/99 ? Hormone Therapy: No ? : No ? Radiation Therapy: No ?? Post : No ?Chemotherapy: No ?IUD: No ? Prev Abnormal Pap: Yes ?? Clinical Hx: Cryo for CHRIS . ?(Blank patel indicate information not provided on requisition) SPECIMEN ADEQUACY: ? Satisfactory For Evaluation ?? GENERAL CATEGORIZATION: ? EPITHELIAL CELL ABNORMALITY ?? DESCRIPTIVE DIAGNOSIS: ? Atypical Squamous Cells Of Undetermined Significance (ASCUS), ? Favor Reactive Process ? Parakeratosis - Surface Reaction ?? RECOMMENDATION: ? Recommend Repeat Pap Smear In Approximately 3-6 Months Or ? Further Follow-up, As Clinically Indicated ? Reviewed And Electronically Signed By: ? Ruiz North M.D. ? Report Date: ?? 05/28/1999 [facility] Archived Tests - Final Diagnosis Text Field: Clinical History : ;Cryo for CHRIS . ? Document reviewed and electronically signed by: ? Conversion ? Report Date: ??05/28/1999 00:00 End of Report [facility] 05/20/1999 9:55 EST 05/20/1999 9:56 EST Jordan Hawthorne MD PATHOLOGY ORDERABLES Performing Organization Address City/State/[facility] Co de Phone Number [address] [address] documented in this encounter Visit Diagnoses Not on filedocumented in this encounter
--- OUTSIDE RECORDS SUMMARY | 2023-09-24 01:02 | XMS_ITS | Encounter Summary ---
Author Organization [facility] [place] [address] Care Team Providers Care Provider Contracting Consultant Name Role Phone Graeme Rhonda COLEEN Primary Care Provider [phone] Reason for Visit * Reason Comments Skin Check Encounter Details Date Type Department Care Team (Late st Contact Info) Description 03/05/2023 8:00 AM EST Office Visit Dermatology at [address] [address] Paulo Arizmendi MD [address] [facility] [place] [address] Nevus of back; Family history of skin cancer Social History Tobacco Use Types Packs/Day Years Used Date Smoking Tobacco: Former Smokeless Tobacco: Never Sex and Gender Information Value Date Recorded Sex Assigned at Not on file Gender Identity Not on file Sexual Orientation Not on file documented as of this encounter Progress Notes * Paulo Arizmendi MD - 03/05/2023 8:00 AM EST Problem: 1. 3-year repeat skin checkup 2. History of numerous blistering sunburns 3. No personal or family history of skin cancer. Stefani follows up after last being seen in January 2020. She grew [place] in [place]. She hashad a lot of sun exposure. She follows up with the Cautions seeing SPF 50 sunscreen of clothing. Both of her parents have had Nonmelanoma skin cancers. Physical examination is a pleasant 48-year-old woman who has a benign examination of the face thighs and calves. Examination of the feet and toe webspaces is also benign. She has a number of solar lentigos over the upper shoulders and a moderate number of benign-appearing junctional melanocytic nevi on the torso, arms and legs. She has beautiful ornate tattoos present on her distal forearms and lower extremities. Assessment plan: Benign skin examination 1. Patient reassured about her benign skin examination 2. Encouraged continuing sun avoidance precautions 3. Return to clinic in another 3 years for repeat check. CC: Rhonda Bedolla APRN documented in this encounter Plan of Treatment Upcoming Encounters Date Type Department Care Team (Late st Contact Info) Description 03/12/2026 8:00 AM EST Office Visit Dermatology at [place] [address] [place] [id number] Paulo Arizmendi MD [address] [facility] [place] [address] documented as of this encounter Visit Diagnoses Diagnosis Nevus of back Benign neoplasm of skin of trunk, except scrotum Family history of skin cancer Family history of other specified malignant neoplasm documented in this encounter Care Teams Provider Contracting Consultant Relationship Specialty Start Date End Date Rhonda Bedolla APRN [address] [place] [address] PCP - General Family Medicine 01/30/20 documented as of this encounter
--- OUTSIDE RECORDS SUMMARY | 2023-09-24 01:02 | XMS_ITS | Encounter Summary ---
Author Organization [facility] Address [address] [place] [address] Care Team Providers Care De Ionizer Operator Name Role Phone Caro Garcia MD Primary Care Provider [phone] Encounter Details Date Type Department Care Team (Late st Contact Info) Description 04/18/2022 Lab Requisition [facility] Pathology & Laboratory Medicine - [facility] [address] [place] [address] Outr Resulting Lab, Provider Social History Tobacco Use Types Packs/Day Years Used Date Smoking Tobacco: Never Assessed Sex and Gender Information Value Date Recorded Sex Assigned at Not on file Gender Identity Not on file Sexual Orientation Not on file documented as of this encounter Plan of Treatment Not on file documented as of this encounter Procedures Procedure Name Priority Date/Time Associated Diagnosis Comments HEPATITIS C AB W REFLEX TO HCV RNA BY PCR Routine 04/17/2022 8:20 EST documented in this encounter Results * HEPATITIS C AB W REFLEX TO HCV RNA BY PCR (04/17/2022 8:20 EST) Hep C Antibody Negative Negative 04/21/2022 9:36 EST [facility] Blood VENOUS BLOOD / Unknown 04/17/2022 8:20 EST 04/18/2022 19:25 EST Provider Outr Resulting Lab CHEMISTRY & BLOOD GAS ORDERABLES [facility] [address] [place] [address] documented in this encounter Visit Diagnoses Not on filedocumented in this encounter Care Teams De Ionizer Operator Relationship Specialty Start Date End Date Caro Garcia MD [address] [place] [id number] PCP - General 02/04/11 documented as of this encounter
--- OUTSIDE RECORDS SUMMARY | 2023-09-24 01:02 | XMS_ITS | Encounter Summary ---
Author Organization [facility] Address [address] [place] [address] Care Team Providers Care Advertising Representative Name Role Phone Caro Garcia MD Primary Care Provider [phone] Encounter Details Date Type Department Care Team (Late st Contact Info) Description 12/05/2021 Lab Requisition [facility] Pathology & Laboratory Medicine - [facility] [address] [place] [address] Altagracia Jimenez, ELECTRIC SHIPYARD OPERATOR [address] [place] [address] Encounter for other general examination Social History Tobacco Use Types Packs/Day Years Used Date Smoking Tobacco: Never Assessed Sex and Gender Information Value Date Recorded Sex Assigned at Not on file Gender Identity Not on file Sexual Orientation Not on file documented as of this encounter Plan of Treatment Not on file documented as of this encounter Procedures Procedure Name Priority Date/Time Associated Diagnosis Comments PAP TEST Today 12/04/2021 8:30 EDT Encounter for other general examination HPV DNA DETECTION WITH GENOTYPING, PCR Today 12/04/2021 8:30 EDT Encounter for other general examination documented in this encounter Results * HUMAN PAPILLOMAVIRUS (HPV) DETECTION-HIGH RISK TYPES (12/04/2021 8:30 EDT) HPV other High Risk types, PCR Negative Negative 12/09/2021 15:25 EDT [facility] Comment:No E6 or E7 mRNA is detected from HPV types 16,18,31,33,35,39,45,51,52,56,58,59,66, and 68 by outdoor emergency care technician mediated amplification. Papanicolaou smear specimen (specimen) CERVIX UTERI STRUCTURE / Unknown 12/04/2021 8:30 EDT 12/06/2021 15:49 EDT Altagracia Jimenez CO[facility]EN MICROBIOLOGY - GE NERAL ORDERABLES [facility] [address] [place] [id number] * PAP TEST (12/04/2021 8:30 EDT) Specimens A. Cervix and/or Endocervix , ThinPrep Imaging System with Manual Evaluation 12/09/2021 15:25 [facility] Specimen Adequacy Satisfactory for Evaluation - transformation zone component absent 12/09/2021 15:25 [facility] General Categorization Negative for intraepithelial lesion or malignancy 12/09/2021 15:25 [facility] Attestation . 12/09/2021 15:25 [facility] at 1525 Clinical History See below 12/10/19 15:25 T [facility] HPV The result for the Human Papillomavirus (HPV) Detection-High Risk Types is Negative. No E6 or E7 mRNA is detected from HPV types 16,18,31,33,35,39 ,45,51,52,56,58,5 9,66, and 68 by outdoor emergency care technician mediated amplification.Francoise ting was performed on specimen [id number] and was resulted on 12/09/2021 1509 EDT by TODD, LAB INSTRUMENT RESULTS IN 12/09/2021 15:25 T [facility] Performing Lab [facility] 12/09/2021 15:25 T [facility] Scanned Images 12/09/2021 15:25 T [facility] Papanicolaou smear specimen (specimen) CERVIX UTERI STRUCTURE / Unknown 12/04/2021 8:30 EDT 12/05/2021 10:27 EDT Altagracia Jimenez ELECTRIC SHIPYARD OPERATOR PATHOLOGY ORDERAB LES [facility] [address] [place] [address] documented in this encounter Visit Diagnoses Diagnosis Encounter for other general examination documented in this encounter Care Teams Advertising Representative Relationship Specialty Start Date End Date Caro Garcia MD [address] [place] [address] PCP - General 02/04/11 documented as of this encounter
--- OUTSIDE RECORDS SUMMARY | 2023-09-24 01:02 | XMS_ITS | Encounter Summary ---
Author Organization [facility] Address [address] [place] [address] Care Team Providers Care Caddy/Caddie Supervisor Name Role Phone Unavailable Primary Care Provider Unavailabl e Encounter Details Date Type Department Care Team (Late st Contact Info) Description 06/24/2004 Results Only [facility] conversion [address] [place] [address] Jordan Hawthorne MD 29 [facility] [address] [place] [address] Social History Tobacco Use Types [...] Priority Date/Time Associated Diagnosis Comments CYTOPATHOLOGY Routine 06/24/2004 0:00 EDT documented in this encounter Results * CYTOPATHOLOGY (06/24/2004 0:00 EDT) Pathology Report: CYTOPATHOLOGY REPORT Reports generated via electronic interface contain original data; however they are lacking the format of the original report. Caution should be taken when reading/interpreti ng unformatted reports. Name: ? STEFANI MIRANDA ? Accession #: ? [id number] : ? 1975 (Age: 29) ??F ?Collect Date: ? 06/24/2004 Location: ? [facility] ? Receive Date: ? 06/26/2004 Provider: ?JORDAN HAWTHORNE MD Copy to: ? Specimen/Source: ?ThinPrep Pap Test, Cervix/Endocervix Last Menstrual Period: ? 06/13/04 Hormonal/Contracep tive Status: ? Control Pills ? SPECIMEN ADEQUACY ? Satisfactory for Evaluation - transformation zone component present GENERAL CATEGORIZATION ? Negative for Intraepithelial Lesion or Malignancy ? Document reviewed and electronically signed by: ? HALEY Armstrong(ASCP) ? Report Date: ??07/02/2004 09:49 End of Report [facility] 06/24/2004 06/26/2004 Jordan Hawthorne MD PATHOLOGY ORDERABLES [facility] M[facility] [address] [place] [address] documented in this encounter Visit Diagnoses Not on filedocumented in this encounter
--- OUTSIDE RECORDS SUMMARY | 2023-09-24 01:02 | XMS_ITS | Encounter Summary ---
Author Organization [facility] Address [address] [place] [address] Care Team Providers Care Tow Truck Driver Name Role Phone Unavailable Primary Care Provider Unavailabl e Encounter Details Date Type Department Care Team (Late st Contact Info) Description 08/08/2008 Orders Only [facility] Laboratory Services - [facility] ([facility] [address] [place], [place] [address] Karuna Shepherd, [facility] [address] [place] [address] [place] [address] Social History Tobacco Use Types [...] Priority Date/Time Associated Diagnosis Comments CYTOPATHOLOGY Routine 08/08/2008 0:00 EDT documented in this encounter Results * CYTOPATHOLOGY (08/08/2008 0:00 EDT) Pathology Report: CYTOPATHOLOGY REPORT ? Reports generated via electronic interface contain original data; ? however they are lacking the format of the original report. ? Caution should be taken when reading/interpreti ng unformatted reports. ? Name: ? STEFANI MIRANDA ? Accession #: ? [id number] ? : ? 1975 (Age: 33) ??F ?Collect Date: ? 08/08/2008 ? Location: ? [facility] ? Receive Date: ? 08/10/2008 ? Provider: ?KARUNA SUSHILA PAIRER INSPECTOR ? Copy to: ? Specimen/Source: ?Pap Test, Cervix/Endocervix, ThinPrep Imaging System ? with manual evaluation ? Last Menstrual Period: ? 5/22/09 ? Hormonal/Contracep tive Status: ? Oral contraceptives ? Other: ? HPVA - HPV testing requested if ASC-US on the current ThinPrep Pap test. ? SPECIMEN ADEQUACY ? Satisfactory for Evaluation ? - transformation zone component present ? GENERAL CATEGORIZATION ? Negative for Intraepithelial Lesion or Malignancy ? Document reviewed and electronically signed by: ? Candy V[place],CT(ASCP) ? Report Date: ??08/15/2008 14:17 ? End of Report ? JENI MENDEZ 08/08/2008 08/10/2008 Karuna Shepherd PAIRER INSPECTOR PATHOLOGY ORDERABLES [facility] [address] [place] [address] documented in this encounter Visit Diagnoses Not on filedocumented in this encounter
--- OUTSIDE RECORDS SUMMARY | 2023-09-24 01:02 | XMS_ITS | Encounter Summary ---
Author Organization [facility] Address [address] [place] [address] Care Team Providers Care Insurance Office Manager Name Role Phone Unavailable Primary Care Provider Unavailabl e Encounter Details Date Type Department Care Team (Late st Contact Info) Description 07/08/2005 Results Only [facility] conversion [address] [place] [address] Jordan Hawthorne MD 29 [facility] [address] [place] [address] Social History Tobacco Use Types [...] Priority Date/Time Associated Diagnosis Comments CYTOPATHOLOGY Routine 07/08/2005 0:00 EDT documented in this encounter Results * CYTOPATHOLOGY (07/08/2005 0:00 EDT) Pathology Report: CYTOPATHOLOGY REPORT Reports generated via electronic interface contain original data; however they are lacking the format of the original report. Caution should be taken when reading/interpreti ng unformatted reports. Name: ? STEFANI MIRANDA ? Accession #: ? [id number] : ? 1975 (Age: 30) ??F ?Collect Date: ? 07/08/2005 Location: ? [facility] ? Receive Date: ? 07/09/2005 Provider: ?JORDAN HAWTHORNE MD Copy to: ? Specimen/Source: ?ThinPrep Pap Test, Cervix/Endocervix, processed on 20/20 [employer] ThinPrep Imaging System, with manual evaluation Last Menstrual Period: ? 06/29/05 Hormonal/Contracep tive Status: ? Control Pills ? SPECIMEN ADEQUACY ? Satisfactory for Evaluation - transformation zone component present GENERAL CATEGORIZATION ? Negative for Intraepithelial Lesion or Malignancy ? Document reviewed and electronically signed by: ? JERARDO Leavitt(ASCP) ? Report Date: ??07/11/2005 07:51 End of Report JENI MENDEZ 07/08/2005 07/09/2005 Jordan Hawthorne MD PATHOLOGY ORDERABLES J[facility]I MENDE[facility] [address] [place] [address] documented in this encounter Visit Diagnoses Not on filedocumented in this encounter
--- OUTSIDE RECORDS SUMMARY | 2023-09-24 01:02 | XMS_ITS | Encounter Summary ---
Author Organization [facility] Address [address] [place] [address] Care Team Providers Care Solid Waste Analyst Name Role Phone Caro Garcia MD Primary Care Provider [phone] Encounter Details Date Type Department Care Team (Late st Contact Info) Description 08/05/2018 Historical Results Only [facility] Lab - Main [place] [address] [place] [id number] Marcelino De La Rosa NP [address] [place] [address] [place] [address] Social History Tobacco Use Types Packs/Day Years Used Date Smoking Tobacco: Never Assessed Sex and Gender Information Value Date Recorded Sex Assigned at Not on file Gender Identity Not on file Sexual Orientation Not on file documented as of this encounter Plan of Treatment Not on file documented as of this encounter Procedures Procedure Name Priority Date/Time Associated Diagnosis Comments HEMOGLOBIN A1C Routine 08/05/2018 14:37 EDT LIPID PROFILE (INCLUDES CHOLESTEROL, TRIGLYCERIDES, HDL, LDL) Routine 08/05/2018 14:37 EDT documented in this encounter Results * (ABNORMAL) LIPID PROFILE (INCLUDES CHOLESTEROL, TRIGLYCERIDES, HDL, LDL) (08/05/2018 14:37 EDT) Triglyceride 52 <150 mg/dL 08/05/2018 16:15 EDT [facility] Comment: Adult: Normal: ?<150 mg/dl ? Borderline High: 150-199 mg/dl ? High: ?200-499 mg/dl ? Very High: >zg=629 Cholesterol 184 <200 mg/dL 08/05/2018 16:15 EDT [facility] Comment: Acceptable: ??<200 Borderline: ??200-239 High: ?> or = 240 Chol/HDL Ratio 3.0 0 - 4.5 08/05/2018 16:15 EDT [facility] Comment: DESIRABLE RATIO IS LESS THAN 4.1 PATIENTS ARE CONSIDERED AT RISK: WOMEN RATIO >5 MEN RATIO >6 FASTING? - [facility] Yes 9 14:49 EDT [facility] HDL 60 40 - 60 mg/dL 08/05/2018 16:15 [facility] Comment: ?? Reference Range Low: ? < 40 ??mg/dL Normal: ??40-60 mg/dL High: ?>= 60 mg/dL LDL CHOLESTEROL - [facility] 114(H) 60 - 100 mg/dL 08/05/2018 16:15 EDT [facility] Non HDL Cholesterol 124 mg/dl 08/05/2018 16:15 EDT [facility] Comment: Desirable: ?Less than 130 Borderline High: ??130-159 High: ? 160-189 Very High: ?Greater than or equal to 190 08/05/2018 14:3 7 EDT 08/05/2018 14:48 EDT Narrative [facility] - 08/05/2018 16:15 EDT Does PT Have a Latex Allergy? NO Marcelino De La Rosa NP CHEMISTRY & BLOOD GA S ORDERABLES [facility] * HEMOGLOBIN A1C (08/05/2018 14:37 EDT) Hemoglobin A1c 5.5 4.0 - 6.0 % 08/05/2018 22:01 EDT [facility] Comment: > or =18 years: ??Increased risk for diabetes (prediabetes): 5.7-6.4% Diabetes: > or =6.5% Therapeutic goals for glycemic control (ADA) Adults: - Goal of therapy: <7.0% HbA1c - Action suggested: >8.0% HbA1c Pediatric patients: - Toddlers and preschoolers: <8.5% (but >7.5%) - School age (6-12 years): <8% - Adolescents and young adults (13-19 years): <7.5% Est Avg Glucose 111 mg/dL 9 22:01 EDT [facility] 08/05/2018 14:3 7 EDT 08/05/2018 14:49 EDT Narrative [facility] - 08/05/2018 22:01 EDT Does PT Have a Latex Allergy? NO Marcelino De La Rosa GRAVEL WEIGHER CHEMISTRY & BLOOD GA S ORDERABLES [facility] documented in this encounter Visit Diagnoses Not on filedocumented in this encounter Care Teams Solid Waste Analyst Relationship Specialty Start Date End Date Caro Garcia MD [address] [place] [address] PCP - General 02/04/11 documented as of this encounter
--- OUTSIDE RECORDS SUMMARY | 2023-09-24 01:02 | XMS_ITS | Clinical Summary ---
[place] [address] Care Team Providers Care Entry Analyst Name Role Phone Graeme Rhonda COLEEN Primary Care Provider [phone] Allergies No known active allergies Medications Medication Sig Dispensed Refills Start Date End Date Status omeprazole (PriLOSEC) 20 mg Capsule, Delayed Release(E.C.) TK 1 C PO QD 08/24/2019 Active Active Problems No known active problems Social History Tobacco Use Types Packs/Day Years Used Date Smoking Tobacco: Former Smokeless Tobacco: Never Sex and Gender Information Value Date Recorded Sex Assigned at Not on file Gender Identity Not on file Sexual Orientation Not on file Plan of Treatment Upcoming Encounters Date Type Department Care Team (Late st Contact Info) Description 03/12/2026 8:00 AM EST Office Visit Dermatology at [address] [place] [id number] Paulo Arizmendi MD [address] [facility] [place] [address] Health Maintenance Due Date Last Done Comments CT Colonography 1975 Colonoscopy 1975 Colorectal Cancer Screening 1975 FIT DNA 1975 FIT 1975 Sigmoidoscopy (10 year) with FIT yearly 1975 Sigmoidoscopy 1975 HIV screen 01/16/1992 Hepatitis C Screening 01/16/1992 Hepatitis B vaccine (0-59 yrs) (1) 1993 Tdap adult 1993 Tetanus vaccine 1993 HPV test 01/16/2004 PAP Smear 01/16/2004 Breast Cancer Share Decision Needed 2014 Breast Cancer screening 2014 Covid-19 Vaccine (2022-24 season) 2022 Influenza (Flu) vaccine (1 o f 1 - Influenza standard series) 11/01/2023 Care Teams Entry Analyst Relationship Specialty Start Date End Date Rhonda Bedolla APRN [address] [place] [address] PCP - General Family Medicine 01/30/20
--- OUTSIDE RECORDS SUMMARY | 2023-09-24 01:02 | XMS_ITS | Encounter Summary ---
Author Organization [facility] Address [address] [place] [address] Care Team Providers Care Special Tax Auditor Name Role Phone Caro Garcia MD Primary Care Provider [phone] Encounter Details Date Type Department Care Team (Late st Contact Info) Description 04/18/2022 Lab Requisition [facility] Pathology & Laboratory Medicine - [facility] [address] [place] [address] Outr Resulting Lab, Provider Social History Tobacco [...] Procedure Name Priority Date/Time Associated Diagnosis Comments HIV 1/2 ANTIGEN AND ANTIBODY, 4TH GENERATION Routine 04/17/2022 8:20 EST documented in this encounter Results * HIV 1/2 ANTIGEN AND ANTIBODY, 4TH GENERATION (04/17/2022 8:20 EST) HIV 1 and 2 Antibody/p24 Antigen, 4th Generation Negative Negative 04/19/2022 9:42 EST [facility] Comment:If acute HIV-1 infec tion is suspected in a high risk patient, submit plasma specimen for HIV-1 RNA quantitation test. Blood VENOUS BLOOD / Unknown 04/17/2022 8:20 EST 04/18/2022 19:25 EST Narrative [facility] - 04/19/2022 9:42 EST Fourth Generation assay performed on the Siemens WebTuneraur XPT. Provider Outr Resulting Lab IMMUNOLOGY A ND SEROLOGY ORDERABLES [facility] [address] [place] [address] documented in this encounter Visit Diagnoses Not on filedocumented in this encounter Care Teams Special Tax Auditor Relationship Specialty Start Date End Date Caro Garcia MD [address] [place] [id number] PCP - General 02/04/11 documented as of this encounter
--- OUTSIDE RECORDS SUMMARY | 2023-09-24 01:02 | XMS_ITS | Encounter Summary ---
Author Organization [facility] Address [address] [place] [address] Care Team Providers Care Payloader Machine Operator Name Role Phone Unavailable Primary Care Provider Unavailabl e Encounter Details Date Type Department Care Team (Late st Contact Info) Description 07/13/2006 Results Only [facility] [place] conversion [address] [place] [address] Jordan Hawthorne MD [address] [facility] [address] [place] [address] Social History Tobacco Use Types [...] Priority Date/Time Associated Diagnosis Comments CYTOPATHOLOGY Routine 07/13/2006 0:00 EDT documented in this encounter Results * CYTOPATHOLOGY (07/13/2006 0:00 EDT) Pathology Report: CYTOPATHOLOGY REPORT Reports generated via electronic interface contain original data; however they are lacking the format of the original report. Caution should be taken when reading/interpreti ng unformatted reports. Name: ? STEFANI MIRANDA ? Accession #: ? [id number] : ? 1975 (Age: 31) ??F ?Collect Date: ? 07/13/2006 Location: ? [facility] ? Receive Date: ? 07/15/2006 Provider: ?JORDAN HAWTHORNE MD Copy to: ? Specimen/Source: ?ThinPrep Pap Test, Cervix/Endocervix, processed on Segway ThinPrep Imaging System, with manual evaluation Last Menstrual Period: ? 04/08 ? SPECIMEN ADEQUACY ? Satisfactory for Evaluation - transformation zone component present GENERAL CATEGORIZATION ? Negative for Intraepithelial Lesion or Malignancy ? Document reviewed and electronically signed by: ? Donnie Mauro, HALEY(ASCP) ? Report Date: ??07/16/2006 15:48 End of Report JENI MENDEZ 07/13/2006 07/15/2006 Jordan Hawthorne MD PATHOLOGY ORDERABLES [facility] [address] [place] [address] documented in this encounter Visit Diagnoses Not on filedocumented in this encounter
--- OUTSIDE RECORDS SUMMARY | 2023-09-24 01:02 | XMS_ITS | Encounter Summary ---
Author Organization [facility] Address [address] [place] [address] Care Team Providers Care Missile Tracking Technician Name Role Phone Caro Garcia MD Primary Care Provider [phone] Encounter Details Date Type Department Care Team (Late st Contact Info) Description 08/17/2018 Historical Results Only [facility] [address] [place] [address] Unknown, Provider, Social History Tobacco Use Types Packs/Day Years Used Date Smoking Tobacco: Never Assessed Sex and Gender Information Value Date Recorded Sex Assigned at Not on file Gender Identity Not on file Sexual Orientation Not on file documented as of this encounter Plan of Treatment Not on file documented as of this encounter Procedures Procedure Name Priority Date/Time Associated Diagnosis Comments HISTORICAL STRESS TEST 08/17/2018 14:00 EDT documented in this encounter Results * HISTORICAL STRESS TEST (08/17/2018 14:00 EDT) Anatomical Region Laterality Modality Nuclear Stress 08/17/2018 14:0 0 EDT Narrative 08/17/2018 14:00 EDT ? [facility] ?[facility] ?[address] [place] [address] ? [id number] ?C A R D I A C ?S T R E S S ?T E S T ?R E P O R T NAME: STEFANI MIRANDA ? : 73 TELEPHONE: [phone] ? MR#: [id number] ? *[facility]* *[facility] [place] [facility]* [address] [place] [address] Stress Electrocardiography Teja protocol Date of study: ??08/17/2018 *PATIENT PRESENTATION* Height: ? 172.7cm (68in) Blood Pressure: Weight: ? 72.7kg (160lb) BSA: ?1.88m S 2 Ordering physician: Marcelino De La Rosa Aprn Impressions: ?? Normal study after maximal exercise. Summary: 1. Stress ECG conclusions: The stress ECG is negative. Chisholm treadmill ?? score: 10. This score predicts a low risk of cardiac events. 2. Stress: The target heart rate was achieved. The heart rate response ?? to stress is normal. There is a normal resting blood pressure with an ?? appropriate response to stress. The patient experienced no chest pain ?? during stress. Exercise capacity is above normal for age. 3. Treadmill exercise testing was performed using the Teja protocol. ?? The patient exercised for 10 min 7 sec, to protocol stage 4, to a ?? maximal work rate of 11mets. Exercise was terminated due to fatigue. Indication: ?? CHEST HEAVINESS, Appropriate Use Criteria: A (Appropriate). History: ??PAST FEW MONTHS, RANDOM EPISODES OF CHEST DISCOMFORT. DESCRIBED A VERY STRONG HEAVINESS ACROSS CHEST. NON-RADIATING, OCCURS ABOUT ONCE A MONTH, AT REST, LASTS A FEW MINUTES. NO ASSOCIATED SYMPTOMS. NO SYMPTOMS NOTED WHEN USING HER DAILY EXERCISE BIKE. NO PREVIOUS CARDIAC HISTORY. STRONG FAMILY HISTORY OF EARLY CAD. ??Risk factors: ??Family history of coronary artery disease. Cholesterol: 184mg/dl. HDL: 60mg/dl. LDL: 114mg/dl. Triglycerides: 52mg/dl. MEDS: MVI, SYMBICORT, OMEPRAZOLE, LORATADINE. Protocol: ??Teja protocol. ? [facility] ?[facility] ?[facility] [address] [place], [place] [address] ? [id number] ?C A R D I A C ?S T R E S S ?T E S T ?R E P O R T NAME: STEFANI MIRANDA ? : 73 TELEPHONE: [phone] ? MR#: [id number] ? Baseline ECG: ??NSR- 77 BPM. Normal ECG. Stress protocol: + +---+ + !Stage ?!HR !BP (mmHg) ?? ! + +---+ + !Baseline supine ?!77 !121/84 (96) ! + +---+ + !Baseline standing ?!85 !120/83 (95) ! + +---+ + !Stage I; 1.7mph, 10degrees; 3 min ??!136!156/82 (107)! + +---+ + !Stage II; 2.5mph, 12degrees; 3 min !152!170/96 (121)! + +---+ + !Stage III; 3.4mph, 14degrees; 3 min!165!181/86 (118)! + +---+ + !Stage IV; 4.2mph, 16degrees; 3 min !171! ! + +---+ + !Peak stress ?!177! ! + +---+ + !Recovery; 1 min ?!148!143/97 (112)! + +---+ + !Recovery; 3 min ?!120! ! + +---+ + !Recovery; 6 min ?!96 !127/86 (100)! + +---+ + * Stress results: ?? Maximal heart rate during stress was 177bpm (101% of maximal predicted heart rate). The maximal predicted heart rate was 176bpm. The target heart rate was achieved. The heart rate response to stress is normal. There is a normal resting blood pressure with an appropriate response to stress. The rate-pressure product for the peak heart rate and blood pressure was 82590au Hg/min. ??The patient experienced no chest pain during stress. ?? Exercise capacity is above normal for age. Stress ECG: MILDLY ABOVE AVERAGE FUNCTIONAL CAPACITY GOOD EXERCISE MARIANNE- 11 METS ( 10 MINUTES 7 SECONDS IN TEJA PROTOCOL) MAX HR- 177 BPM NORMAL BP RESPONSE RARE PVC NO CHEST PAIN NO ISCHEMIC ECG CHANGES. ??The stress ECG is negative. ?? Chisholm treadmill score: 10. This score predicts a low risk of cardiac events. Study data: ??Angel Bruce MD supervised and was readily available during the procedure. This study was interpreted by [facility] ? [facility] ?[facility] ?[facility] [address] [place], [place] [address] ? [id number] ?C A R D I A C ?S T R E S S ?T E S T ?R E P O R T NAME: STEFANI MIRANDA ? : 73 TELEPHONE: [phone] ? MR#: [id number] ? [facility] [place] [facility] Cardiology. ??Study status: ??Routine. ??Consent: ??The risks, benefits, and alternatives to the procedure were explained to the patient and informed consent was obtained. ??Procedure: ??Initial setup. A baseline ECG was recorded. Surface ECG leads and manual cuff blood pressure measurements were monitored. Heart sounds: Normal. Lung sounds: Normal. Treadmill exercise testing was performed using the Teja protocol. The patient exercised for 10 min 7 sec, to protocol stage 4, to a maximal work rate of 11mets. Exercise was terminated due to fatigue. ??Study completion: ??The patient tolerated the procedure well and was discharged from the lab. Discharge: ??The patient left the laboratory in stable condition. Birthdate: ??Patient birthdate: 1975. ??Sex: ??Gender: female. ??Study date: ??Study date: 08/17/2018. Study time: 02:00 PM. Signature Documentation: ?? The Stress ECG portion of this study was interpreted by Angel Bruce MD. Electronically signed by Angel Bruce 08/17/2018 17:47 Procedure Note Angel Bruce MD - 12/19/2018 [facility] [address] [place], [place] [address] [id number] C A R D I A C S T R E S S T E S T R E P O R T NAME: TIMA MIRANDA: 73 TELEPHONE: [phone] MR#: [id number] [id number] *[facility]* *[facility] [place] [facility]* [address] [place] [address] Stress Electrocardiography Teja protocol Date of study: 08/17/2018 *PATIENT PRESENTATION* Height: 172.7cm (68in) Blood Pressure: Weight: 72.7kg (160lb) BSA: 1.88m S 2 Ordering physician: Marcelino De La Rosa Aprn Impressions: Normal study after maximal exercise. Summary: 1. Stress ECG conclusions: The stress ECG is negative. Chisholm treadmill score: 10. This score predicts a low risk of cardiac events. 2. Stress: The target heart rate was achieved. The heart rate response to stress is normal. There is a normal resting blood pressure with an appropriate response to stress. The patient experienced no chest pain during stress. Exercise capacity is above normal for age. 3. Treadmill exercise testing was performed using the Teja protocol. The patient exercised for 10 min 7 sec, to protocol stage 4, to a maximal work rate of 11mets. Exercise was terminated due to fatigue. Indication: CHEST HEAVINESS, Appropriate Use Criteria: A (Appropriate). History: PAST FEW MONTHS, RANDOM EPISODES OF CHEST DISCOMFORT. DESCRIBED A VERY STRONG HEAVINESS ACROSS CHEST. NON-RADIATING, OCCURS ABOUT ONCE A MONTH, AT REST, LASTS A FEW MINUTES. NO ASSOCIATED SYMPTOMS. NO SYMPTOMS NOTED WHEN USING HER DAILY EXERCISE BIKE. NO PREVIOUS CARDIAC HISTORY. STRONG FAMILY HISTORY OF EARLY CAD. Risk factors: Family history of coronary artery disease. Cholesterol: 184mg/dl. HDL: 60mg/dl. LDL: 114mg/dl. Triglycerides: 52mg/dl. MEDS: MVI, SYMBICORT, OMEPRAZOLE, LORATADINE. Protocol: Teja protocol. [facility] [address] [place] [address] [id number] C A R D I A C S T R E S S T E S T R E P O R T NAME: TIMA MIRANDA: 73 TELEPHONE: [phone] MR#: [id number] [facility]#:[id number] Baseline ECG: NSR- 77 BPM. Normal ECG. Stress protocol: + +---+ + !Stage !HR !BP (mmHg) ! + +---+ + !Baseline supine !77 !121/84 (96) ! + +---+ + !Baseline standing !85 !120/83 (95) ! + +---+ + !Stage I; 1.7mph, 10degrees; 3 min !136!156/82 (107)! + +---+ + !Stage II; 2.5mph, 12degrees; 3 min !152!170/96 (121)! + +---+ + !Stage III; 3.4mph, 14degrees; 3 min!165!181/86 (118)! + +---+ + !Stage IV; 4.2mph, 16degrees; 3 min !171! ! + +---+ + !Peak stress !177! ! + +---+ + !Recovery; 1 min !148!143/97 (112)! + +---+ + !Recovery; 3 min !120! ! + +---+ + !Recovery; 6 min !96 !127/86 (100)! + +---+ + * Stress results: Maximal heart rate during stress was 177bpm (101% of maximal predicted heart rate). The maximal predicted heart rate was 176bpm. The target heart rate was achieved. The heart rate response to stress is normal. There is a normal resting blood pressure with an appropriate response to stress. The rate-pressure product for the peak heart rate and blood pressure was 71347af Hg/min. The patient experienced no chest pain during stress. Exercise capacity is above normal for age. Stress ECG: MILDLY ABOVE AVERAGE FUNCTIONAL CAPACITY GOOD EXERCISE MARIANNE- 11 METS ( 10 MINUTES 7 SECONDS IN TEJA PROTOCOL) MAX HR- 177 BPM NORMAL BP RESPONSE RARE PVC NO CHEST PAIN NO ISCHEMIC ECG CHANGES. The stress ECG is negative. Chisholm treadmill score: 10. This score predicts a low risk of cardiac events. Study data: Anegl Bruce MD supervised and was readily available during the procedure. This study [facility] by [facility] [address] [place], [place] [address] [id number] C A R D I A C S T R E S S T E S T R E P O R T NAME: HAY MIRANDAB: 73 TELEPHONE: [phone] MR#: [id number] [facility] [place] [facility]iology. Study status: Routine. Consent: The risks, benefits, and alternatives to the procedure were explained to the patient and informed consent was obtained. Procedure: Initial setup. A baseline ECG was recorded. Surface ECG leads and manual cuff blood pressure measurements were monitored. Heart sounds: Normal. Lung sounds: Normal. Treadmill exercise testing was performed using the Teja protocol. The patient exercised for 10 min 7 sec, to protocol stage 4, to a maximal work rate of 11mets. Exercise was terminated due to fatigue. Study completion: The patient tolerated the procedure well and was discharged from the lab. Discharge: The patient left the laboratory in stable condition. Birthdate: Patient birthdate: 1975. Sex: Gender: female. Study date: Study date: 08/17/2018. Study time: 02:00 PM. Signature Documentation: The Stress ECG portion of this study was interpreted by Angel Bruce MD. Electronically signed by Angel Bruce 08/17/2018 17:47 Provider Unknown CARDIAC NM ORDERABLE S documented in this encounter Visit Diagnoses Not on filedocumented in this encounter Care Teams Missile Tracking Technician Relationship Specialty Start Date End Date Caro Garcia MD [address] [place] [phone] PCP - General 02/04/11 documented as of this encounter
--- OUTSIDE RECORDS SUMMARY | 2023-09-24 01:02 | XMS_ITS | Encounter Summary ---
Author Organization [facility] Address [address] [place] [address] Care Team Providers Care Television Newscast Director Name Role Phone Unavailable Primary Care Provider Unavailabl e Encounter Details Date Type Department Care Team (Late st Contact Info) Description 05/18/2000 Results Only [facility] [place] conversion [address] [place] [address] Jordan Hawthorne MD 29 [facility] [address] [place] [address] Social History Tobacco Use Types [...] Priority Date/Time Associated Diagnosis Comments CYTOPATHOLOGY Routine 05/18/2000 0:00 EST documented in this encounter Results * CYTOPATHOLOGY (05/18/2000 0:00 EST) Pathology Report: CYTOPATHOLOGY REPORT Reports generated via electronic interface contain original data; however they are lacking the format of the original report. Caution should be taken when reading/interpreti ng unformatted reports. Name: ? STEFANI MIRANDA ? Accession #: ? [id number] : ? 1975 (Age: 25) ??F ?Collect Date: ? 05/18/2000 Location: ? [facility] ? Receive Date: ? 05/20/2000 Provider: ?JORDAN HAWTHORNE MD Copy to: ? Specimen/Source: ?ThinPrep Pap Test, Cervix/Endocervix Last Menstrual Period: ? 05/06/00 Previous Gynecologic Pathology: ? ASC-US: repeatedly for 10 years Treatment History: ? Cryotherapy: Other: ? Additional clinical information: Nl exam ? SPECIMEN ADEQUACY ? Satisfactory for evaluation. GENERAL CATEGORIZATION ? Within Normal Limits ? Document reviewed and electronically signed by: ? Jacinta Brady, HALEY(ASCP) ? Report Date: ??05/21/2000 07:47 End of Report JENI MENDEZ 05/18/2000 05/20/2000 Jordan Hawthorne MD PATHOLOGY ORDERABLES JENI MEN[facility] [address] [place] [address] documented in this encounter Visit Diagnoses Not on filedocumented in this encounter
--- OUTSIDE RECORDS SUMMARY | 2023-09-24 01:02 | XMS_ITS | Clinical Summary ---
Author Organization [facility] Address [address] [place] [address] Care Team Providers Care Rabies Inspector Name Role Phone Caro Garcia MD Primary Care Provider [phone] Social History Tobacco Use Types Packs/Day Years Used Date Smoking Tobacco: Never Assessed Sex and Gender Information Value Date Recorded Sex Assigned at Not on file Gender Identity Not on file Sexual Orientation Not on file Plan of Treatment Health Maintenance Due Date Last Done Comments Hepatitis B Vaccine (1 of 3 - 19+ 3-dose series) 01/15 COVID-19 Vaccine (2022- season) 2022 Hepatitis C Screen Completed 04/17/2022 Procedures Procedure Name Priority Date/Time Associated Diagnosis Comments HEPATITIS C AB W REFLEX TO HCV RNA BY PCR Routine 04/17/2022 8:20 EST from Last 3 Months or Most Recently Relevant to Health Maintenance Results * HEPATITIS C AB W REFLEX TO HCV RNA BY PCR (04/17/2022 8:20 EST) Hep C Antibody Negative Negative 04/21/2022 9:[address] [facility] Blood VENOUS BLOOD / Unknown 04/17/2022 8:20 EST 04/18/2022 19:25 EST Provider Outr Resulting Lab CHEMISTRY & BLOOD GAS ORDERABLES [facility] [address] [place] [address] from Last 3 Months or Most Recently Relevant to Health Maintenance Care Teams Rabies Inspector Relationship Specialty Start Date End Date Caro Garcia MD [address] [place] [address] [facility] - General 02/04/11
--- OUTSIDE RECORDS SUMMARY | 2023-09-24 01:02 | XMS_ITS | Encounter Summary ---
Author Organization [facility] Address [address] [place] [address] Care Team Providers Care Key Punch Operator Name Role Phone Caro Garcia MD Primary Care Provider [phone] Encounter Details Date Type Department Care Team (Late st Contact Info) Description 09/16/2018 Results Only [facility] [phone] Karuna Shepherd, [facility] [address] [place] [address] Social History Tobacco Use Types [...] Diagnosis Comments PAP TEST- RESULT ONLY Routine 09/16/2018 0:00 EDT documented in this encounter Results * PAP TEST- RESULT ONLY (09/16/2018 0:00 EDT) Pathology Report: CYTOPATHOLOGY REPORT Reports generated via electronic interface contain original data; however they are lacking the format of the original report. Caution should be taken when reading/interpreti ng unformatted reports. Name: ? STEFANI MIRANDA ? Accession #: ? [id number] ? : ? 1975 (Age: 43) ??F ?Collect Date: ? 09/16/2018 ? Location: ? [facility] ? Receive Date: ? 09/17/2018 ? Provider: KARUNA SHEPHERD GRAVEL HAULER Copy to: CARO GARCIA MD ? Final Report SPECIMEN ADEQUACY ? Satisfactory for Evaluation - transformation zone component present GENERAL CATEGORIZATION ? Negative for Intraepithelial Lesion or Malignancy ?? Hormonal/Contracep tive status: Intrauterine device Specimen/Source: ??Pap Test, Cervix, ThinPrep Imaging System with manual evaluation Document reviewed and electronically signed by: ? HALEY Bravo(ASCP) ? Report ??Date: 09/20/2018 14:02 HPV with Pap Test ? Date Ordered: ? 09/20/2018 ? Status: ?? Signed Out ?Date Complete: ? 09/21/2018 ? By: ??System Interface ? Date Reported: ? 09/21/2018 ? Interpretation RESULT: Negative for HPV. No E6 or E7 mRNA is detected from HPV types 16,18,31,33,35, 39,45,51,52,56,58, 59,66, and 68 by manager hospital mediated amplification. Comments Document reviewed and electronically signed by: ? System Interface ? Report date: 09/21/2018 By the signature above, the attending physician certifies that he/she has personally conducted a gross and/or microscopic examination of the described specimens and rendered or confirmed the above diagnosis. End of Report [facility] 09/16/2018 09/17/2018 Karuna Shepherd GRAVEL HAULER PATHOLOGY ORDERABLES [facility] [address] [place] [address] documented in this encounter Visit Diagnoses Not on filedocumented in this encounter Care Teams Key Punch Operator Relationship Specialty Start Date End Date Caro Garcia MD [address] [place] [address] PCP - General 02/04/11 documented as of this encounter
--- OUTSIDE RECORDS SUMMARY | 2023-09-24 01:02 | XMS_ITS | Encounter Summary ---
Author Organization [facility] Address [address] [place] [address] Care Team Providers Care Postal Mail Carrier Name Role Phone Unavailable Primary Care Provider Unavailabl e Encounter Details Date Type Department Care Team (Late st Contact Info) Description 08/12/2010 Results Only [facility] - [facility] [address] [place] [address] Karuna Shepherd, [facility] [address] [place] [address] [place] [address] Social History Tobacco Use Types [...] Diagnosis Comments PAP TEST- RESULT ONLY Routine 08/12/2010 0:00 EDT documented in this encounter Results * PAP TEST- RESULT ONLY (08/12/2010 0:00 EDT) Pathology Report: CYTOPATHOLOGY REPORT ? Reports generated via electronic interface contain original data; ? however they are lacking the format of the original report. ? Caution should be taken when reading/interpreti ng unformatted reports. ? Name: ? STEFANI MIRANDA ? Accession #: ? [id number] ? : ? 1975 (Age: 35) ??F ?Collect Date: ? 08/12/2010 ? Location: ? [facility] ? Receive Date: ? 08/13/2010 ? Provider: ?KARUNA SUSHILA ETL ANALYST DEVELOPER ? Copy to: ?STEPHANIE FINE MD ? Specimen/Source: ?Pap Test, Cervix/Endocervix, ThinPrep Imaging System ? with manual evaluation ? Last Menstrual Period: ? 05/18/11 ? Hormonal/Contracep tive Status: ? Oral contraceptives ? Previous Gynecologic Pathology: ? SISSY I: 1999 ? Treatment History: ? Cryotherapy ? SPECIMEN ADEQUACY ? Satisfactory for Evaluation ? - transformation zone component present ? GENERAL CATEGORIZATION ? Negative for Intraepithelial Lesion or Malignancy ? Document reviewed and electronically signed by: ? Michelle Moseley, SCT(ASCP) ? Report Date: ??08/20/2010 11:50 ? End of Report ? [facility] 08/12/2010 08/13/2010 Karuan Shepherd ETL ANALYST DEVELOPER PATHOLOGY ORDERABLES [facility] [address] [place] [address] documented in this encounter Visit Diagnoses Not on filedocumented in this encounter
--- OUTSIDE RECORDS SUMMARY | 2023-09-24 01:02 | XMS_ITS | Encounter Summary ---
Author Organization [facility] Address [address] [place] [address] Care Team Providers Care Channel Development Manager Name Role Phone Unavailable Primary Care Provider Unavailabl e Encounter Details Date Type Department Care Team (Late st Contact Info) Description 11/14/1999 Results Only [facility] [place] [facility] [address] [place] [address] Jordan Hawthorne MD [address] [place] [address] Social History Tobacco Use Types Packs/Day Years Used Date Smoking Tobacco: Never Assessed Sex and Gender Information Value Date Recorded Sex Assigned at Not on file Gender Identity Not on file Sexual Orientation Not on file documented as of this encounter Plan of Treatment Not on file documented as of this encounter Procedures Procedure Name Priority Date/Time Associated Diagnosis Comments HUMAN PAPILLOMAVIRUS PROFILE Routine 11/14/1999 9:00 EDT CYTOPATHOLOGY Routine 11/14/1999 0:00 EDT documented in this encounter Results * HUMAN PAPILLOMAVIRUS PROFILE (11/14/1999 9:00 EDT) Specimen Description Cervix, ThinPrep vial [facility] Result-HPV Profile (Note) Negative for HPV types 6,11,16,18,31 ,33,35,39,42, 43,44,45,51,5 2 ?,56,58,59, and 68 ? [facility] Report Status (Note) FINAL [id number] ? TEST PERFORMED OR REFERRED BY [facility] ? [facility] ? [address] ? [place], [place] ??[address] ? [facility] 11/14/1999 9:00 EDT 11/19/1999 12:20 EDT Jordan Hawthorne MD H[facility]OR[facility] [address] [place] [address] * CYTOPATHOLOGY (11/14/1999 0:00 EDT) Pathology Report: CYTOPATHOLOGY REPORT Reports generated via electronic interface contain original data; however they are lacking the format of the original report. Caution should be taken when reading/interpreti ng unformatted reports. Name: ? DONATOESA ? Accession #: ? [id number] : ? 1975 (Age: 24) ??F ?Collect Date: ? 11/14/1999 Location: ? [facility] ? Receive Date: ? 11/18/1999 Provider: ?JORDAN HAWTHORNE MD Copy to: ? Specimen/Source: ?ThinPrep Pap Test, Cervix/Endocervix Last Menstrual Period: ? 11/01/99 Previous Gynecologic Pathology: ? ASC-US: ASC-US: for 6 years. Treatment History: ? Colposcopy: negative Other: ? HPVDX - HPV testing requested regardless of diagnosis on current ThinPrep Pap test. ? SPECIMEN ADEQUACY ? Satisfactory for evaluation but limited by an absence of a transformation zone component. GENERAL CATEGORIZATION ? Within Normal Limits ? Document reviewed and electronically signed by: ? JERARDO Leavitt(ASCP) ? Report Date: ??11/19/1999 11:47 End of Report [facility] 11/14/1999 11/18/1999 Jordan Hawthorne MD PATHOLOGY ORDERABLES [facility] [address] [place] [address] documented in this encounter Visit Diagnoses Not on filedocumented in this encounter
--- OUTSIDE RECORDS SUMMARY | 2023-09-24 01:02 | XMS_ITS | Referral Summary ---
Author Organization [facility] Address [address] [place] [address] Care Team Providers Care Gallery Manager Name Role Phone Caro Garcia MD Primary Care Provider [phone] Social History Tobacco Use Types Packs/Day Years Used Date Smoking Tobacco: Never Assessed Sex and Gender Information Value Date Recorded Sex Assigned at Not on file Gender Identity Not on file Sexual Orientation Not on file Plan of Treatment Not on file Procedures Procedure Name Priority Date/Time Associated Diagnosis Comments HEPATITIS C AB W REFLEX TO HCV RNA BY PCR Routine 04/17/2022 8:20 EST from Last 3 Months or Most Recently Relevant to Health Maintenance Results * HEPATITIS C AB W REFLEX TO HCV RNA BY PCR (04/17/2022 8:20 EST) Hep C Antibody Negative Negative 04/21/2022 9:36 EST [facility] Blood VENOUS BLOOD / Unknown 04/17/2022 8:20 EST 04/18/2022 19:25 EST Provider Outr Resulting Lab CHEMISTRY & BLOOD GAS ORDERABLES [facility] [address] [place] [address] from Last 3 Months or Most Recently Relevant to Health Maintenance Care Teams Gallery Manager Relationship Specialty Start Date End Date Caro Garcia MD [address] [place] [address] PCP - General 02/04/11
--- NOTE | 2023-09-24 08:00 | DI.MAMMO_ITS ---
Exam(s) MAMMO SCREENING EXAM: MAMMO SCREENING CLINICAL HISTORY: screening,Z12.31 TECHNIQUE: Bilateral full field digital CC and MLO mammographic images were obtained with 3D tomosyn thesis and utilizing computer aided detection (CAD). COMPARISON: Available for comparison. FINDINGS: Masses/Architectural Distortion: None seen. Microcalcifications: No suspicious pleomorphic-type are seen. Skin Thickening/Nipple Retraction: None. IMPRESSION: 1. No significant interval change with no specific features of malignancy noted. 2. Unless there is more urgent need, screening mammography is recommended, as per [employer] guidelines. BI-RADS Category 1 - Negative Breast Density - Category C - Heterogeneously dense Breast density category C or D implies that the patient has dense breast tissue. Dense breast tissue is very common and is not abnormal but dense breast tissue can make it harder to find cancer on a ma mmogram. Also, dense breast tissue may increase their breast cancer risk. This information about the result of the mammogram report was provided to the patient to raise their awareness. Use this report when you speak with the patient about their risks for breast cancer, which includes their family hist ory. At that time, you may recommend for more screening tests (Ultrasound or MRI) as they might be us eful based on their risk. A negative radiographic report should not delay biopsy if a dominant or clinically suspicious mass is present. Up to ten percent of cancers are not identified on mammography. A negative report may reinforce clinical impression. Adenosis and dense breasts may obscure an underlying neoplasm. False positive reports average 6 to 10%. Patient will receive a letter notifying them of these results.
== END ==
PROVIDERS: PCP Nurse Practitioner Family; Visit Provider Obstetrics & Gynecology
DX: Z12.31 Encounter for screening mammogram for malignant neoplasm of breast (principal); R92.333 Mammographic heterogeneous density, bilateral breasts
CPT/HCPCS: 77063; 77067

== ENCOUNTER 2024-05-06 14:39 | Outpatient (REF) | payer BC, SELFPAY ==
[2024-05-06 14:43] LABS: HCT 43.9 % (36.0-46.0); HGB 14.4 g/dL (11.2-15.7); MCH 27.5 pg (27.0-33.0); MCHC 32.8 % (32.0-36.0); MCV 84 fL (80-95); MPV 11.4 fL (8.0-11.0); Platelet Count 181 10^3/uL (130-400); RBC 5.24 10^6/uL (3.93-5.22); RDW 13.3 % (11.7-14.6); RDW-SD 40.8 fL; WBC 7.36 10^3/uL (4.4-10.8)
[2024-05-06 15:01] LABS: ALT 18 U/L (14-59); AST 10 U/L (15-37); Albumin 3.8 g/dL (3.4-5.0); Alkaline Phosphatase 63 U/L (46-116); Anion Gap 5.9 mmol/L (3-11); BUN 13 mg/dL (7-18); Bilirubin, Total 0.3 mg/dL (0.2-1.0); CO2 29.1 mmol/L (21.0-32.0); Chloride 110 mmol/L (98-107); Estimated GFR 68.63 (mL/min/1.73m2); Glucose 94 mg/dL (74-106); Potassium 4.7 mmol/L (3.5-5.1); Sodium 145 mmol/L (136-145); Total Protein 6.7 g/dL (6.4-8.2)
== END 2024-05-06 14:40 | disposition home or self-care (01) ==
LOC: NCHCN 14:39
PROVIDERS: PCP Nurse Practitioner Family; Visit Provider Nurse Practitioner Family
DX: Z00.00 Encounter for general adult medical examination without abnormal findings (principal)
CPT/HCPCS: 80053; 85027

== ENCOUNTER 2024-09-28 03:00 | Outpatient (CLI) | payer BC, SELFPAY ==
--- NOTE | 2024-09-28 07:30 | DI.MAMMO_ITS ---
Exam(s) MAMMO SCREENING EXAM: MAMMO SCREENING CLINICAL HISTORY: screening TECHNIQUE: Mammograms were interpreted according to the usual protocol including computer analysis with CAD system, tomosynthesis and C-view imaging. COMPARISON: 2016 through 2023 FINDINGS: The breasts are composed of heterogeneously dense fibroglandular densities, Breast Density category C. No suspicious masses or suspicious microcalcifications are seen. No skin thickening or abnormal axillary lymph nodes are seen. There has been no significant change from prior exams. IMPRESSION: BI-RADS Category 1, Negative mammogram. Yearly screening mammography is recommended. Breast Density: Category C - The breasts are heterogeneously dense, which may obscure small masses. Breast density Category C or D implies that the patient has dense breast tissue. Dense breast tissue can make it harder to find cancer on a mammogram. Dense breast tissue is also associated with an increased risk of breast cancer. This information about the result of the mammogram report was provided to the patient to raise their awareness. Use this report when you speak with the patient about their risks for breast cancer, which includes their family history. At that time, you may recommend additional screening tests (Ultrasound or MRI) as these tests may add significant information. A negative radiographic report should not delay biopsy if a dominant or clinically suspicious mass is present. Up to ten percent of cancers are not identified on mammography. A negative report may reinforce clinical impression. Adenosis and dense breasts may obscure an underlying neoplasm. False positive reports average 6 to 10%.
== END 2024-09-28 03:20 ==
LOC: DI 03:00
PROVIDERS: PCP Nurse Practitioner Family; Visit Provider Obstetrics & Gynecology
DX: Z12.31 Encounter for screening mammogram for malignant neoplasm of breast (principal); R92.333 Mammographic heterogeneous density, bilateral breasts
CPT/HCPCS: 77063; 77067